=== PATIENT | female | born 1980 | race Caucasian/White ===

== ENCOUNTER 2017-03-12 16:30 | Outpatient (RCR) | payer OTHER, SELFPAY ==
--- NOTE | 2017-02-06 16:48 | HP.PTEVAL ---
Patient's Visit Information KODY WITT is a 36 year old F referred to Physical Therapy by Adriana Rodriguez NP.MCIESA with a diagnosis of Sciatica. Date of Evaluation: 02/06/17 Physical Therapist: Maria M Kearney - Visit Plan Frequency: 2x /Week Duration: 4 Weeks Plan: Patient to see JEAN PAUL next visit - Subjective Subjective: Patient has had pain for over 10 years- no specific injury- remembers her back pain started about 6 or 7 years old- Last MRI was 2012- showed bulging discs and herniations in the lumbar spine. Has delt with it a long time has modified which is normal- but now its painful daily and its getting old. The bouts are lasting longer and more painful. Pain is located the low back and has muscle spasms up to mid thoracic. Her neck is always spasming and has had VILLAGRAN for as long as she can remember. Eases: Ibuprofen, stretching (bending backwards) working out ([employer]). Belongs to [employer]- modifies- was going 3-5x a week but has not been going as much due to pain in the back. Pain radiates down the left but in the last 2 weeks its been in the buttock on both sides. Numb/burning on both sides. Burning pain on the left stops about the knee. Happens 3-4x a week and comes and goes. Describes back pain as dull/achy and when she moves its sharp. Twisting and turning is okay if she is careful. Prefers to bend backwards- she has to put her hand on something or squat to go forwards. Worst: 10. Last week could not get out of bed- could not put pressure through her legs- did exercises and then was able to more. Best: 04/14. MD sent her to therapy and possibly needs an MRI- was told she might need surgery but she is not keen on that. Has not had a consult with a spinal surgeon. Sleep: needs a new mattress- its not good- she cant sleep on her back or stomach. Sleeps on her side then her arm goes numb she she tosses and turns a lot- does have numbness that in the palm when she wakes up 30 min to 4 hours before it goes away. Denies any trauma on her back. PMHx: goiter meds: Ibuprofen and Wellbutrin. 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 - Objective Posture: FH, RS, Increased kyphosis- severe guarding- very little trunk rotation. Gait: no deviation. ROM: WNL in all planes but has pain with forward flexion, extn and SB to the right. LE: WFL. Strength: Core: poor, Hip: IR/ER: 3+/5, flexion/abd/extn: 4+/5 Knee: 5/5 Ankle: 5/5. Sensation/Reflexes: WNL. Dural Signs: positive- bilateral. Palpation:tender paraspinals lumbar and thoracic, Gluts and ITBand bilaterally. Special Test: SL extn on left leg- reproduced s/s immediatly. Flex: HS: mod, Gastoc: mod - Goals Goal 1:: Patient will be I with HEP and progression Goal Time Frame: 4-6 Weeks Goal 2:: Patient will maintain proper posture t/o tx session to demo increased core s/s Goal Time Frame: 4-6 Weeks - Rehabilitation Potential Physical Therapy Diagnosis: Patient presents with hypombility-she has decreased ROM, strength and muscular endurance leading to poor posture and increased pain with ADL's. Rehabilitation Potential: Fair - Anticipated Interventions Patient/Client Instruction: Educate patient on: Benefits of Fitness Program For the Purpose of:: To improve ability to perform ADL's Therapeutic Exercise to Include: Strength training, Endurance training, Agility training, Body mechanics, Postural training, Flexibilty training, In an aquatic setting, Passive ROM, Active ROM, Dynamic Lumbar Stabilization, Keila Exercises, Scapular Strength/Stabilization For the Purpose of:: To improve muscle performance and motor function TENS: Yes Cryotherapy (ice pack, ice massage): Yes Thermo therapy (hot pack): Yes Ultrasound (thermal/non thermal): Yes For the Purpose of:: To decrease pain Thank you for the opportunity to evaluate your patient. For Medicare and Medicare HMO plans, please review the plan of care and approve it. It will need to be FAXED BACK to us at [phone] for Medicare purposes. Please let me know if there are questions or concerns regarding this plan of care. Physician Signature: Date:
--- NOTE | 2017-03-12 17:23 | HP.PTDCSUM ---
HP - PT D/C Summary It has been my pleasure to treat KODY WITT under orders from Adriana Rodriguez NP.MCIESA for the diagnosis of Sciatica for a total of 8 visit(s). Discharge Date: 03/12/17 Please see the following information for a summary of their discharge status. - Subjective Subjective: PATIENT REPORTS SHE HAD A REALLY ROUGH NIGHT AND APPARENTLY TOSSED AND TURNED FOR 3-4 HOURS DUE TO LLE NUMBNESS ALL THE WAY DOWN HER LEG TO HER FOOT. SHE REPORTS THIS WAS FOR NO APPARENT REASON. FOLLOW UP SCHEDULED WITH Rocco MUTSAFA. HOPING TO GET MRI AND SPECIALIST CONSULT AT THIS POINT. PATIENT REPORTS MAINLY ONLY TEMPORARY RELIEF WITH THIS EPISODE OF CARE WITH PT. - Pain LOW BACK Pain Intensity (Out of 10): 3 - Objective Objective/Function: UPON EXAM, PATIENT IS NOT PROGRESSING OR WORSENING. RECOMMEND PHYSICIAN FOLLOW UP. I STILL THINK PATIENT IS A GOOD AQUATIC THERAPY CANDIDATE IF NOT SURGICAL OR INJECTION CANDIDATE BUT IT REALLY DOES NOT FIT INTO HER SCHEDULE. - Goals Goal 1:: Patient will be I with HEP and progression Goal Progress: Not Progressing Goal 2:: Patient will maintain proper posture t/o tx session to demo increased core s/s Goal Progress: Not Progressing - Plan Plan: D/C DUE TO LACK OF PROGRESS. RECOMMEND PHYSICIAN FOLLOW UP AND PATIENT IS AGREEABLE. - D/C Information If there are questions or concerns regarding this patient's physical therapy, please feel free to call me at [phone]. Thank you for the referral of this patient. Sincerely, Tiana Witt
== END 2017-03-12 19:00 | disposition home or self-care (01) ==
LOC: PT 16:30
PROVIDERS: Family Provider Nurse Practitioner; PCP Nurse Practitioner; Visit Provider Nurse Practitioner
DX: M54.32 Sciatica, left side (principal); M54.9 Dorsalgia, unspecified
CPT/HCPCS: 97014; 97035; 97140; 97162; 97530; G0283

== ENCOUNTER → 2017-04-03 16:59 | Outpatient (CLI) | payer OTHER, SELFPAY ==
--- NOTE | 2017-04-03 17:30 | MRI_ITS ---
STUDY: MRI CERVICAL SPINE WITHOUT CONTRAST REASON FOR EXAM: Female, 36 years old. Neck and bilateral shoulder pain. TECHNIQUE: Standardized fat and water weighted pulse sequences were obtained in the sagittal and axial planes. COMPARISON: Prior comparison studies are not available for review at this time. FINDINGS: Normal foramen magnum and brainstem-cervical cord junction. Normal craniovertebral junction. Normal anterior atlantoaxial articulation. Normal odontoid process. There is straightening of the normal cervical lordosis. Normal vertebral bodies and posterior osseous elements. C2-3: Normal endplates. Normal disc height, signal and morphology. Normal central canal. There is mild left-sided neural foraminal narrowing. At the right neural foramen is patent. There is no evidence for nerve impingement. There is moderate degenerative arthropathy of the facet joints. C3-4: Normal endplates. Normal disc height, signal and morphology. Normal central canal and intervertebral neural foramina. There is degenerative arthropathy of the facet joints. C4-5: There is a broad central disc protrusion. There is a moderate bilateral neural foraminal narrowing with uncovertebral and facet joint arthropathy. There is no evidence for nerve impingement. There is mild acquired canal stenosis with possible impingement of the right side of spinal cord at this level. C5-6: There is a mild disc bulge and osteophyte complex. The neural foramina are patent without evidence for nerve impingement. There is no significant central acquired canal stenosis. C6-7: Normal endplates. Normal disc height, signal and morphology. Normal central canal and intervertebral neural foramina. C7-T1: Normal endplates. Normal disc height, signal and morphology. Normal central canal and intervertebral neural foramina. Normal cervical cord. There is no demonstrated cervical cord syrinx cavity. Normal visualized soft tissue structures. MRI/Spine Cervical (Routine) IMPRESSION: Multilevel degenerative disc disease and degenerative arthropathy of the cervical spine with the most severe changes at C5-6 with potential cord impingement. Electronically Signed: Jane Lisa MD at 19:42 EST , Service support ,
--- NOTE | 2017-04-03 18:15 | MRI_ITS ---
STUDY: MRI LUMBAR SPINE WITHOUT CONTRAST REASON FOR EXAM: Female, 36 years old. Chronic low back pain and radiculopathy. TECHNIQUE: Standardized fat and water weighted pulse sequences were obtained in the sagittal and axial planes. COMPARISON: MRI of the lumbar spine dated April 10, 2012. FINDINGS: T12-L1: Normal endplates. Normal disc height, signal and morphology. Normal bilateral facet joints. Normal central canal and bilateral lateral recesses. Normal bilateral intervertebral neural foramina. Normal lumbar lordosis. There is no substantial scoliosis. Normal conus medullaris that terminates at the L1 level. L1-2: Normal endplates. Normal disc height, signal and morphology. Normal bilateral facet joints. Normal central canal and bilateral lateral recesses. Normal bilateral intervertebral neural foramina. L2-3: Normal endplates. Normal disc height, signal and morphology. Normal bilateral facet joints. Normal central canal and bilateral lateral recesses. Normal bilateral intervertebral neural foramina. L3-4: Normal endplates. Normal disc height, signal and morphology. Normal bilateral facet joints. Normal central canal and bilateral lateral recesses. Normal bilateral intervertebral neural foramina. L4-5: There is a mild disc bulge and osteophyte complex. There is mild degenerative arthropathy of facet joints. The neural foramina are bilaterally narrowed without evidence for nerve impingement. There is no significant central acquired canal stenosis. L5-S1: There is narrowing of this disc with vacuum disc phenomenon. There may be a small focal central disc protrusion. There is moderate degenerative arthropathy of facet joints. The neural foramina are narrowed without evidence for nerve impingement. Normal visualized sacral ala. Normal visualized paraspinous soft tissue structures. MRI/Spine Lumbar (Routine) IMPRESSION: Mild multilevel degenerative disc disease and degenerative arthropathy of the lower lumbar spine with neural foraminal narrowing, as described. Electronically Signed: Jane Lisa MD at 19:54 EST , Service support ,
== END ==
PROVIDERS: Family Provider Nurse Practitioner; PCP Nurse Practitioner; Visit Provider Nurse Practitioner
DX: M54.2 Cervicalgia (principal); M54.9 Dorsalgia, unspecified
CPT/HCPCS: 72141; 72148

== ENCOUNTER 2017-08-19 18:59 | Emergency (ER) | payer OTHER, SELFPAY ==
[2017-08-19 19:00] VITALS: BP 147/77; PULSE 88; RESP 16; TEMP 37.1; O2SAT 96; BMI 32.3
--- NOTE | 2017-08-19 19:20 | RAD_ITS ---
STUDY: X-RAY - RIGHT ANKLE REASON FOR EXAM: Female, 37 years old. Fall with swelling and bruising. Pain. TECHNIQUE: 3 view(s) of the ankle. COMPARISON: None. FINDINGS: Normal visualized distal tibia and fibula. Normal medial and lateral malleoli. Normal tibiotalar articulation and ankle mortise. Normal visualized talus and calcaneus. The visualized subtalar, talonavicular, calcaneocuboid and tarsal articulations are normal. The soft tissue structures are unremarkable. RAD/Ankle min 3 Views IMPRESSION: No significant abnormality. Electronically Signed: Kristopher Wallace MD at 19:30 EDT , Service support ,
--- NOTE | 2017-08-19 19:45 | ED.DCSUM_ITS ---
- ER Visit Summary Date of Service: 08/19/17 Chief Complaint: Right ankle pain History of Present Illness: The patient is a 37 F who presents after a mechanical fall. She slipped on mud and injured her right ankle. She states she has been unable to bear weight on it due to pain. She was initially nauseated which she attributes to pain but denies any other injuries. No chest pain abdominal pain back pain her head injury loss of consciousness amnesia or injury to any other extremity. Physical Examination: Afebrile vitals are unremarkable Patient has soft tissue swelling of the right ankle as well as diffuse tenderness which is greatest along the lateral aspect she does not have focal bony tenderness she has brisk capillary refill with normal sensation to light touch and an easily palpable 2+ dorsalis pedis pulse she has no tenderness at the knee proximal fibula hip or any of the other extremities Heart regular rate and rhythm Lungs clear GCS 15 Test Results: Right ankle x-ray is normal, no significant abnormality Emergency Department Course and Treatment: Patient was advised on supportive care including rest ice and elevation. She was given an Aircast and crutches to use as needed. She was given a prescription for naproxen. She understands return for new or worsening symptoms was discharged home. Treatment Plan: [] Disposition: Discharge Impression: Acute right ankle sprain This note was generated with [employer] dictation software. It may contain incorrect words, spelling, and punctuation that were not noted in review of the chart prior to signing ED Disposition - Plan for ED Patient: Chief Complaint: Lower Extremity Injury Referrals: Adriana Rodriguez [Primary Care Provider] -
--- NOTE | 2017-08-19 19:45 | ED.DEP ---
ED Disposition - Plan for ED Patient: Chief Complaint: Lower Extremity Injury Instructions: ED Sprain Ankle W X Ray Prescriptions: Naproxen [Naprosyn] 500 mg PO BID #20 tab Referrals: Adriana Rodriguez [Primary Care Provider] -
== END 2017-08-19 19:59 | disposition home or self-care (01) ==
LOC: ED 19:48
PROVIDERS: Emergency Provider Emergency Medicine; Family Provider Nurse Practitioner; PCP Nurse Practitioner
DX: S93.401A Sprain of unspecified ligament of right ankle, initial encounter (principal); W01.0XXA Fall on same level from slipping, tripping and stumbling without subsequent striking against object, initial encounter; Y93.89 Activity, other specified; Y92.89 Other specified places as the place of occurrence of the external cause; Y99.8 Other external cause status
CPT/HCPCS: 73610; 99284

== ENCOUNTER → 2018-11-22 | Outpatient (CLI) | payer OTHER, SELFPAY ==
--- NOTE | 2018-11-22 10:54 | US_ITS ---
STUDY: ABDOMINAL ULTRASOUND - RIGHT UPPER QUADRANT REASON FOR VISIT: Female, 38 years old elevated liver function tests. TECHNIQUE: Ultrasound evaluation of the right upper quadrant was performed with real-time and static martinez-scale imaging. TECHNICAL QUALITY: Adequate. COMPARISON: None. FINDINGS: Liver: The liver measures 15.3 cm. There is increased echogenicity consistent with fatty infiltration. The bile ducts are within normal limits. There is hepatic color flow. The direction of portal flow is hepatopetal. 1.2 cm round hyperechoic mass within the right lobe of the liver likely consistent with a hemangioma. Gallbladder: Normal distended gallbladder. The gallbladder wall measures 2 mm. There is a negative sonographic Young's sign. There is no pericholecystic fluid. There are no gallstones. Common Bile Duct (C.B.D.): The common bile duct measures 2 mm. Pancreas: Normal size of the head, body and tail of the pancreas. There is normal echogenicity of the pancreas. There is no demonstrated pancreatic mass or cyst. Right Kidney: Normal size of the right kidney. The right kidney measures 11.0 cm. Normal renal cortex. The right cortex measures 1.5 cm. There is no demonstrated renal mass or cyst. There is no right hydronephrosis. US/Liver IMPRESSION: Fatty infiltration of the liver. 1.2 cm probable hemangioma in the right lobe the liver appear Electronically Signed: Bora Joy MD at 12:06 EDT Tel , Service support ,
--- NOTE | 2018-11-22 10:54 | BI_ITS ---
MAMMOGRAPHY - BILATERAL SCREENING REASON FOR EXAM: Female, 38 years old. Routine annual screening examination. PERTINENT HISTORY: Grandmother with breast cancer. Aunts with breast cancer. TECHNIQUE: Digital bilateral breast davis (3D mammographic acquisition) in the CC and MLO projections. 2-D mediolateral oblique (MLO) and craniocaudad (CC) views of both breasts were obtained. CAD: Full Field Digital Mammography with Computer Added Detection was performed. COMPARISON: No comparison mammograms available at this time. If any prior films become available, an addendum to this report can be generated. FINDINGS: Breast Composition: The breasts are heterogeneously dense, which may obscure small masses. There are no dominant masses or suspicious calcifications. Benign-appearing bilateral axillary lymph nodes. No other significant abnormalities are identified. BI/SCREEN MAMM (CAD) W/DAVIS BILAT IMPRESSION: Negative screening mammogram. Yearly followup mammogram recommended. (A) ASSESSMENT CATEGORY: BIRADS Category 2: Benign. A letter regarding these results will be sent to the patient by the facility within 30 days. Approximately 10% of breast cancers are not detected by mammography. A normal mammogram should not delay biopsy of a clinically suspicious abnormality. [id number] Electronically Signed: Yunior Quinn, at 13:44 EDT , Service support ,
== END | disposition home or self-care (01) ==
LOC: OPUS 10:52
PROVIDERS: Family Provider Nurse Practitioner; PCP Nurse Practitioner; Referring Provider Nurse Practitioner; Visit Provider Nurse Practitioner
DX: R74.8 Abnormal levels of other serum enzymes (principal); Z12.31 Encounter for screening mammogram for malignant neoplasm of breast
CPT/HCPCS: 76705; 77063; 77067

== ENCOUNTER 2019-03-06 18:19 | Inpatient (IN) | payer OTHER, SELFPAY ==
[2019-03-06] VITALS (8 sets, daily range): BP systolic 116–154; BP diastolic 81–107; PULSE 70–103; RESP 12–20; TEMP 36.1–36.7; O2SAT 96–100; BMI 32.3; BMI 34.7
--- NOTE | 2019-03-06 19:00 | RAD_ITS ---
STUDY: X-RAY CHEST REASON FOR EXAM: Female, 38 years old. Chest pain TECHNIQUE: Frontal view of the chest COMPARISON: X-Ray Chest January 11, 2015 FINDINGS: Left base atelectasis and/or small infiltrate is present. The lungs are otherwise clear. There are no pleural effusions. There is no pneumothorax. The heart is normal in size. The visualized osseous structures are within normal limits. RAD/Chest 1 View (Portable) IMPRESSION: Left base atelectasis and/or small infiltrate. Otherwise, clear lungs. Electronically Signed: Efren Smith, at 19:31 EST Tel , Service support ,
--- NOTE | 2019-03-06 19:01 | EKG12_ITS ---
Test Reason : CP Blood Pressure : / mmHG Vent. Rate : 074 BPM Atrial Rate : 074 BPM P-R Int : 160 ms QRS Dur : 084 ms QT Int : 372 ms P-R-T Axes : 016 033 015 degrees QTc Int : 412 ms Normal sinus rhythm Normal ECG Confirmed by JUHI MENDEZ, JAYDEN ([id number]), newspaper editor managing SHELDON FOX ([id number]) on 03/11/2019 8:04:10 AM Referred By: ED PHYSICIAN Confirmed By:JAYDEN REYNAGA MD
[2019-03-06] MEDS: Aspirin 81 MG TAB.CHEW 324 MG PO (19:05)
[2019-03-06 19:16] LABS: Absolute Lymphocyte Count 1.82 X10^3/uL (0.83-4.51); Absolute Neutrophil Count 5.5 X10^3/uL (2.0-7.7); Basophil# 0.02 X10^3/uL; Basophil% 0.2 % (0-1); Eosinophil# 0.14 X10^3/uL; Eosinophils% 1.7 % (0-5); Hematocrit 42.5 % (37-47); Hemoglobin 14.1 g/dL (12.0-15.0); Lymphocyte # 1.82 X10^3/ul (4.0); Lymphocyte % 22.1 % (19-41); Mean Corp Hgb Conc 33.2 g/dL (32-36); Mean Corpuscular Hgb 30.1 pg (27.0-32.0); Mean Corpuscular Volume 90.6 fL (81-99); Monocyte# 0.78 X10^3/uL; Monocyte% 9.5 % (0-10); NRBC Flagged by Analyzer 0 % (0-5); Neutrophil # 5.45 X10^3/uL (2.7-7.7); Neutrophil % 66.1 % (47-70); Platelet Count 241 K/mm3 (150-450); RBC Distribution Width CV 12.5 % (11.6-14.6); RBC Distribution Width SD 40.7 fl (35.1-43.9); Red Blood Count 4.69 M/mm3 (4.2-5.4); White Blood Count 8.2 K/mm3 (4.4-11.0)
--- NOTE | 2019-03-06 19:23 | ED.DCSUM_ITS ---
- ER Visit Summary Date of Service: 03/06/19 Chief Complaint: Chest pain History of Present Illness: The patient is a 38 F presenting with chest pain. She states this started at 5 PM last night. Pain has been waxing and waning. She has nausea with no vomiting. She denies shortness of breath. Denies PE/DVT risk factors. She has family history of early heart disease, no other CAD risk factors. Pain has been constant throughout the day today. Denies other complaints. Physical Examination: Vitals are stable. Patient is afebrile. Alert no acute distress. HEENT exam is unremarkable. Neck is supple. Lungs are clear and equal bilaterally. Left chest wall tenderness with no crepitus Heart is regular rate and rhythm. Abdomen is soft nontender nondistended. Extremities are unremarkable. Skin is warm and dry. No focal neurologic deficit. Remainder of exam is unremarkable. Emergency Department Course and Treatment: Patient was given aspirin on arrival. EKG is sinus rhythm rate of 74 with no acute ischemic changes. Chest x-ray shows atelectasis versus infiltrate. She has had no symptoms of cough or fever. CBC, chemistries unremarkable. Troponin is negative. D-dimer 1.27. CTA chest was obtained and shows somewhat limited evaluation secondary to poor opacification of the small distal pulmonary arteries however there are likely bilateral pulmonary emboli within the subsegmental pulmonary arteries of the bilateral lung bases. Heterogeneous attenuation within the bilateral lung bases may be billing customer service representative of an acute infectious or inflammatory process as clinically indicated. Incompletely characterized density adjacent to the pancreas needs further evaluation for better characterization with dedicated contrast enhanced abdominal imaging. Possible right adrenal nodule is also incompletely characterized. Patient was advised of these findings. She was given Eliquis. Discussed with the hospitalist for admission. Disposition: Admission Impression: Bilateral pulmonary embolism This note was generated with [employer] dictation software. It may contain incorrect words, spelling, and punctuation that were not noted in review of the chart prior to signing ED Disposition - Plan for ED Patient: Referrals: Adriana Rodriguez NP-C [Primary Care Provider] -
[2019-03-06 19:29] LABS: Anion Gap 3 (5-15); BUN 13 mg/dL (7-18); BUN/Creat Ratio 12.5 RATIO (10-20); Calcium,Total 9.4 mg/dL (8.5-10.1); Chloride 105 mmol/L (98-107); Creatinine, Serum 1.04 mg/dL (0.55-1.02); EST Glomerular Filtration Rate 62 mL/min (>60); Est Glom Filt Rate - Afr Amer 75 mL/min (>60); Estimated Creatinine Clearance 67.31 ml/min; Glucose 91 mg/dL (74-106); Potassium 3.7 mmol/L (3.5-5.1); Sodium Level 138 mmol/L (136-145)
[2019-03-06 19:55] LABS: D-Dimer Quantitative (DVT/PE) 1.27 FEU/ug/m (0.27-0.49)
--- NOTE | 2019-03-06 20:55 | CT_ITS ---
We are attempting to reach an attending provider to discuss findings. An addendum with communication details will be sent when the communication is complete. STUDY: CTA CHEST REASON FOR EXAM: Female, 38 years old. CP SINCE LAST NIGHT/ELEV DDIMER RADIATION DOSAGE (If Supplied By Facility): CTDIvol = ( 13.68 ) mGy, DLP = ( 443.15 ) mGycm TECHNIQUE: The examination was performed with the intravenous administration of Isovue 370 100ml. Post-processing of the angiographic images was performed, with multiplanar reformation and 3D reconstruction. Individualized dose optimization techniques were used for this CT. COMPARISON: None. FINDINGS: Normal enhancement of the main pulmonary artery and right and left pulmonary arteries. There is limited enhancement of the bilateral peripheral pulmonary arteries. There are likely several small pulmonary emboli within the distal subsegmental branches of the bilateral lower lobe pulmonary arteries for example series 2 image 75. Normal thoracic aorta and visualized great vessels. There is no demonstrated aortic dissection. Normal heart and pericardium. Normal mediastinum. Normal hilar regions. Normal visualized trachea and bronchi. The lungs are well expanded. Heterogeneous groundglass opacities are noted within the bilateral lung bases. Normal pleura. Normal chest wall structures. Normal osseous structures. Incompletely characterized possible right adrenal nodule. Question a solid pancreatic tail mass versus artifact. CT/CTA Chest W/WO Contrast IMPRESSION: Somewhat limited evaluation secondary to poor opacification of the small distal pulmonary arteries however there are likely bilateral pulmonary emboli within the subsegmental pulmonary arteries of the bilateral lung bases. Heterogeneous attenuation within the bilateral lung bases may be automobile sales representative of an acute infectious or inflammatory process as clinically indicated. Incompletely characterized density adjacent to the pancreas needs further evaluation for better characterization with dedicated contrast enhanced abdominal imaging. Possible right adrenal nodule is also incompletely characterized. Findings discussed with Physician: Senait Travis by Dr. Camargo on 03/06/2019 9:45 PM via telephone. Electronically Signed: Philip Camargo, at 21:49 EST Tel , Service support ,
[2019-03-06] MEDS: APIXABAN 5 MG TABLET 10 MG PO (22:15)
[2019-03-06] MEDS: Morphine 2 MG/ML Syringe IV (22:15)
--- NOTE | 2019-03-06 22:20 | HP.PCM_ITS ---
Problem List (1) Bilateral pulmonary embolism Status: Acute (2) GERD (gastroesophageal reflux disease) Status: Chronic History of Present Illness Date of Admission: 03/06/19 Chief Complaint: Chest pain. The patient is a 38 year old F patient with past medical history as mentioned above presented to the emergency room because of chest pain. Her symptoms started yesterday evening around 5 PM with pain underneath her left scapula, sharp pain, 7 out of 10 in severity, goes to the front of her chest on the left side, extending to the left side of her neck, aggravated by movement and taking a deep breath, no relieving factor and this pain has been waxing and waning. She denied shortness of breath, diaphoresis, nausea or vomiting. He denied leg pain or edema. Denied pain, nausea or vomiting. In the emergency department, her vital signs were stable. Her routine blood work was unremarkable. EKG revealed normal sinus rhythm without evidence of acute ischemic changes or cardiac arrhythmias. Troponin was negative x2. D-dimer was elevated for which CTA chest done and revealed likely bilateral pulmonary emboli within the subsegmental pulmonary arteries of bilateral lung bases as well as incompletely characterized density adjacent to the pancreas. Chest x-ray showed no acute findings. She is being admitted for acute bilateral pulmonary emboli and incidental finding on of the pancreas. 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 Paternal History Items: Heart Disease Review of Systems Constitutional: Denies: Anorexia, Chills, Fever, Weakness Eyes: Denies: Blurred vision, Double vision, Drainage, Redness HEENT: Denies: Difficulty Hearing, Ear Pain, Eye Pain, Nasal Congestion, Sore Throat Cardiovascular: Reports: Chest Pain, Light Headedness. Denies: Chest Pressure, Chest Tightness, Edema, Heaviness, Orthopnea, Palpitations, Syncope Respiratory: Denies: Cough, Pleuritic Pain, Shortness of Breath, Sputum production, Wheezing Gastrointestinal: Denies: Abdominal Pain, Constipation, Diarrhea, Nausea, Vomiting Genitourinary: Denies: Dysuria, Frequency, Hematuria Musculoskeletal: Reports: Back Pain. Denies: Arm Pain, Foot Pain Skin: Denies: Dryness, Rash Neurological: Denies: Balance problems, Double vision, Headaches, Incoordination, Numbness Psychiatric: Denies: Anxiety, Depression Endocrine: Denies: Change in Body Habitus, Polydipsia, Polyuria VTE Information - Inpt Only VTE Present on Admission: No VTE Mechan Device Prophylaxis: None VTE Pharm Prophylaxis ordered?: No Patient Problems: Active and Suspected Problems Bilateral pulmonary embolism (Acute) - Physical Exam Vitals/I&O's: Vital Signs Temp Pulse Resp BP Pulse Ox 97 F L 83 18 143/90 H 100 03/06/19 18:19 03/06/19 22:00 03/06/19 22:00 03/06/19 22:00 03/06/19 22:00 Oxygen Delivery Method Room Air Weight: 200 lb Body Mass Index (BMI) 32.3 General: Alert, Oriented x3, Cooperative, No apparent distress HEENT: Atraumatic, PERRLA, EOMI, Normocephalic Oral: Moist Mucosa, No Gingival or Mucosal Lesions/ Ulcerations Neck: Supple, No JVD, Negative Carotid Bruits, Trachea Midline, Thyroid Normal Size and Texture Lungs: Clear to auscultation, Normal air movement, No rhonchi, No wheeze, No rales Cardiovascular: Regular rate, Regular Rhythm, Normal S1, Normal S2, No murmurs, PMI Normal Abdomen: Bowel Sounds Present, Soft, Non Tender, Non-Distended, No Hepato- splenomegaly Extremities: No clubbing, No cyanosis, No edema Skin: No rashes, No breakdown Lymphatic: No Cervical, Supraclavicular, or Inguinal Adenopathy Neurological: Cranial nerves II-XII grossly intact, Motor Exam 5/5 strength throughout Psych/Mental Status: Normal Affect, Appropriate, Alert and oriented to time, place, person, mood and affect Laboratory Results 03/06/19 18:30: WBC 8.2, RBC 4.69, Hgb 14.1, Hct 42.5, MCV 90.6, MCH 30.1, MCHC 33.2, RDW Std Deviation 40.7, RDW Coeff of Amanda 12.5, Plt Count 241, MPV 10.0, Immature Gran % (Auto) 0.400, Neut % (Auto) 66.1, Lymph % (Auto) 22.1, [place] % (Auto) 9.5, Eos % (Auto) 1.7, Baso % (Auto) 0.2, Absolute Neuts (auto) 5.5, Absolute Lymphs (auto) 1.82, Nucleated RBC % 0 03/06/19 18:30: Sodium 138, Potassium 3.7, Chloride 105, Carbon Dioxide 30.0, Anion Gap 3 L, BUN 13, Creatinine 1.04 H, Estim Creat Clear Calc 67.31, Est GFR (MDRD) Af Amer 75, Est GFR (MDRD) Non-Af 62, BUN/Creatinine Ratio 12.5, Glucose 91, Calcium 9.4, Troponin I < 0.015 03/06/19 19:30: D-Dimer Quant (PE/DVT) 1.27 H* 03/06/19 21:41: Troponin I < 0.015 Clinical Impression(s) from Imaging Studies Chest X-Ray 03/06/19 19:00 IMPRESSION: Left base atelectasis and/or small infiltrate. Otherwise, clear lungs. Electronically Signed: Efren Smith, at 19:31 EST Tel , Service support , Chest CTA 03/06/19 20:55 IMPRESSION: Somewhat limited evaluation secondary to poor opacification of the small distal pulmonary arteries however there are likely bilateral pulmonary emboli within the subsegmental pulmonary arteries of the bilateral lung bases. Heterogeneous attenuation within the bilateral lung bases may be sales utility representative of an acute infectious or inflammatory process as clinically indicated. Incompletely characterized density adjacent to the pancreas needs further evaluation for better characterization with dedicated contrast enhanced abdominal imaging. Possible right adrenal nodule is also incompletely characterized. Findings discussed with Physician: Senait Travis by Dr. Camargo on 03/06/2019 9:45 PM via telephone. Electronically Signed: Philip Camargo, at 21:49 EST Tel , Service support , Assessment/Plan All Active Problems Bilateral pulmonary embolism (Acute) This is a 39 years old female patient presented to the emergency room because of chest pain, found to have elevated d-dimer and found to have bilateral pulmonary emboli on CTA chest. #1 acute bilateral subsegmental pulmonary emboli: CTA chest reviewed. This is unprovoked with, no personal or family history of clotting disorders, no recent surgery and no history of cancer. Patient's vital signs are stable. EKG was unremarkable. Troponin was negative. Plan: Admit to PCU, cardiac monitoring, hypercoagulable work-up with protein C profile, protein S, Antithrombin III, factor V Leiden, start Eliquis 10 mg twice daily, will request reread of the CTA chest by radiology in our hospital tomorrow morning, IV fluids, IV morphine PRN, OxyIR PRN for pain, repeat CBC and BMP tomorrow morning. #2 incidental pancreatic lesion/possible right adrenal nodule: Those are an incidental finding on CTA chest. Patient denied any abdominal pain. Plan: LFT, lipase, CT scan abdomen and pelvis with contrast tomorrow afternoon as patient received IV contrast tonight. #3 GERD: Continue PPI. #4 DVT prophylaxis: She will be on Eliquis twice daily. This note was generated with [employer] dictation software. It may contain incorrect words, spelling, and punctuation that were not noted in checking the note before signing. Code Visit Inpatient E&M: 16472 Init Hosp L3
[2019-03-06 23:21] LABS: AST(SGOT) 11 U/L (15-37); Alanine Aminotransfer ALT/SGPT 33 U/L (13-56); Albumin, Serum 3.9 g/dL (3.2-5.0); Alkaline Phosphatase 62 U/L (45-117); Bilirubin, Direct 0.12 mg/dL (0.00-0.30); Lipase 126 U/L (73-393); Protein, Total 7.9 g/dL (6.4-8.2)
[2019-03-07] VITALS (8 sets, daily range): BP systolic 113–126; BP diastolic 58–80; PULSE 67–101; RESP 17–18; TEMP 36.7–36.9; O2SAT 94–97
[2019-03-07] MEDS: 0.9% Normal Saline 1,000 ML 100 ML IV ×2 (00:30→11:45)
[2019-03-07] MEDS: oxyCODONE 5 MG Tablet PO ×3 (00:32→13:07)
[2019-03-07 06:23] LABS: Absolute Lymphocyte Count 2.02 X10^3/uL (0.83-4.51); Absolute Neutrophil Count 3.6 X10^3/uL (2.0-7.7); Basophil# 0.01 X10^3/uL; Basophil% 0.2 % (0-1); Eosinophil# 0.14 X10^3/uL; Eosinophils% 2.2 % (0-5); Hematocrit 40.9 % (37-47); Hemoglobin 13.6 g/dL (12.0-15.0); Lymphocyte # 2.02 X10^3/ul (4.0); Lymphocyte % 31.9 % (19-41); Mean Corp Hgb Conc 33.3 g/dL (32-36); Mean Corpuscular Volume 90.3 fL (81-99); Mean Platelet Vol. 9.6 fl (6.2-12.0); Monocyte# 0.57 X10^3/uL; NRBC Flagged by Analyzer 0 % (0-5); Neutrophil # 3.58 X10^3/uL (2.7-7.7); Neutrophil % 56.5 % (47-70); Platelet Count 226 K/mm3 (150-450); RBC Distribution Width CV 12.3 % (11.6-14.6); RBC Distribution Width SD 40.7 fl (35.1-43.9); Red Blood Count 4.53 M/mm3 (4.2-5.4); White Blood Count 6.3 K/mm3 (4.4-11.0)
[2019-03-07] MEDS: Acetaminophen 325 MG Tablet 650 MG PO ×2 (06:41→15:02)
[2019-03-07 06:46] LABS: Anion Gap 4 (5-15); BUN 12 mg/dL (7-18); BUN/Creat Ratio 16.2 RATIO (10-20); Calcium,Total 9.1 mg/dL (8.5-10.1); Chloride 111 mmol/L (98-107); Creatinine, Serum 0.74 mg/dL (0.55-1.02); EST Glomerular Filtration Rate 92 mL/min (>60); Est Glom Filt Rate - Afr Amer 112 mL/min (>60); Estimated Creatinine Clearance 98.27 ml/min; Glucose 87 mg/dL (74-106); Sodium Level 139 mmol/L (136-145)
--- NOTE | 2019-03-07 09:02 | ECHOD_ITS ---
Reason For Study: Emboli Procedure This was a 2D Doppler, Color Flow transthoracic echocardiogram. The exam was of adequate technical quality. Exam performed portable in patient room. Left Ventricle Normal LV size. Left ventricular systolic function is normal. The estimated ejection fraction is 60 %. No evidence for diastolic dysfunction. No regional wall motion abnormalities noted. Right Ventricle Normal RV size. Normal systolic function. Atria Normal left atrium. Normal right atrium. No doppler evidence for ASD. Mitral Valve There is no mitral annular calcification. Normal mitral valve. Mild (1+) mitral valve insufficiency. Tricuspid Valve Normal tricuspid valve. Trivial tricuspid valve insufficiency. Right ventricular systolic pressure estimated to be 21 mmHg. Aortic Valve Trisinus/trileaflet aortic valve. Normal aortic valve. Pulmonic Valve The pulmonic valve is not well visualized. Trivial pulmonic valve insufficiency. Great Vessels Normal sized aortic root. Pericardium/Pleural No pericardial effusion. MMode/2D Measurements & Calculations LVIDd: 5.3 cm IVSd: 1.1 cm Ao root diam: 3.2 cm LVIDs: 3.7 cm LVPWd: 0.94 cm RVDd: 3.4 cm FS: 30.3 % LAV(MOD-bp): 39.3 ml LVAd ap4: 29.3 cm2 SV(MOD-sp4): 49.3 ml LAV(MOD-bp) Indexed: 19.1 ml/m2 EDV(MOD-sp4): 84.9 ml LAV(MOD-sp2): 32.1 ml EDV(sp4-el): 87.4 ml LAV(MOD-sp4): 39.1 ml LVAs ap4: 17.0 cm2 ESV(MOD-sp4): 35.6 ml ESV(sp4-el): 35.0 ml EF(MOD-sp4): 58.0 % EF(sp4-el): 60.0 % SV(sp4-el): 52.4 ml LA A4 area: 15.8 cm2 LA dimension(2D): 3.9 cm RA A4 area: 12.9 cm2 Doppler Measurements & Calculations MV E max hiro: 51.4 cm/sec Lat Peak E' Hiro: 11.2 cm/sec Med Peak E' Hiro: 7.0 cm/sec MV A max hiro: 47.2 cm/sec E/E' lat: 4.6 E/E' med: 7.4 MV E/A: 1.1 Ao V2 max: 123.8 cm/sec LV V1 max: 101.6 cm/sec PA V2 max: 97.5 cm/sec Ao max P.1 mmHg LV V1 max P.1 mmHg Ao V2 mean: 91.1 cm/sec Ao mean P.5 mmHg Ao V2 VTI: 26.6 cm TR max hiro: 210.1 cm/sec TR max P.7 mmHg Interpretation Summary Left ventricular systolic function is normal. The estimated ejection fraction is 60 %. Mild (1+) mitral valve insufficiency. Trivial tricuspid valve insufficiency. Trivial pulmonic valve insufficiency. Right ventricular systolic pressure estimated to be 21 mmHg. No evidence for diastolic dysfunction. Ordering Physician: Lottie Collins Referring Physician: Adriana Rodriguez Performed By: Zakiya Falcon, REGGIE, RVT
[2019-03-07] MEDS: APIXABAN 5 MG TABLET 10 MG PO (09:42)
[2019-03-07] MEDS: Pantoprazole Sodium 20 MG Tablet PO (09:43)
--- NOTE | 2019-03-07 10:11 | PCM.CONS.PUL ---
Reason for Consult Date of Consultation: 03/07/19 Reason for Consultation: Pulmonary emboli History of Present Illness: The patient is a 38-year-old female, with a history as outlined below, who presented to the emergency department on March 06 with complaints of left-sided pleuritic type chest pain. The patient is a lifelong non-smoker. She has been never been diagnosed previously with any form of venous thromboembolic disease. She denies any recent trauma or travel. The patient does report having had a recent viral infection, following exposure to a sick child. She has no known underlying cardiac disease. On presentation to the emergency department, the patient was noted to be afebrile and hemodynamically stable. She was maintaining appropriate oxygen saturations on room air. CBC with differential was unremarkable. D-dimer was mildly elevated to 1.27. Chemistry profile was notable for a creatinine of 1.04. Troponin was negative. A CTA chest was subsequently obtained. Unfortunately, there was limited enhancement of the peripheral pulmonary arteries. There was a questionable right lower lobe subsegmental PE. There was also incidental note of a possible pancreatic tail mass/abnormality. The patient was subsequently placed on Eliquis and admitted to the progressive care unit for further management. At the current time, the patient continues to report the presence of left-sided pleuritic type chest pain. Nevertheless, she denies the presence of shortness of breath. She is currently scheduled to undergo a CT abdomen/pelvis with contrast. 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 Paternal History Items: Heart Disease Review of Systems Constitutional: Denies: Chills, Fever Eyes: Denies: Blurred vision, Double vision HEENT: Denies: Head Aches, Sinus Congestion, Sinus Drainage Cardiovascular: Reports: Chest Pain. Denies: Chest Tightness Respiratory: Denies: Shortness of Breath Gastrointestinal: Denies: Abdominal Pain, Nausea, Vomiting Genitourinary: Denies: Dysuria Musculoskeletal: Denies: Joint Pain, Joint Tenderness Skin: Denies: Rash, Wounds Neurological: Denies: Numbness, Tingling, Focal weakness Psychiatric: Denies: Anxiety, Depression, Homicidal Ideations, Suicidal Ideations Hematologic/ Lymphatic: Denies: Easy Bruising, Easy Bleeding Patient Problems: Active and Suspected Problems Bilateral pulmonary embolism (Acute) Objective: The patient's most recent lab work, culture data and imaging studies have all been personally reviewed. - Physical Exam Vitals/I&O's: Vital Signs Temp Pulse Resp BP Pulse Ox 98.0 F 82 18 115/73 97 03/07/19 09:36 03/07/19 09:36 03/07/19 09:36 03/07/19 09:36 03/07/19 09:36 Oxygen Delivery Method Room Air Weight: 221 lb 12.56 oz Body Mass Index (BMI) 34.7 Intake and Output for Last 24 Hours 03/05/19 03/06/19 03/07/19 23:59 23:59 23:59 Intake Total 2241.67 / 2241.67 Balance 2241.67 / 2241.67 General: Alert, Cooperative, No apparent distress HEENT: Atraumatic, PERRLA, Normocephalic Oral: No Gingival or Mucosal Lesions/ Ulcerations Neck: Supple, No Nodes, Trachea Midline Lungs: Normal air movement, No rhonchi, No wheeze, No rales Cardiovascular: Regular rate, Regular Rhythm, Normal S1, Normal S2 Abdomen: Bowel Sounds Present, Soft, Non Tender Extremities: No clubbing, No cyanosis, No edema Skin: No breakdown Musculoskeletal: No Tenderness to Palpation of Joints or Extremities, No Muscle Wasting Lymphatic: No Cervical, Supraclavicular, or Inguinal Adenopathy Neurological: Cranial nerves II-XII grossly intact, Neuro grossly intact Psych/Mental Status: Normal Affect, Appropriate Labs (Last 48 Hours) 03/06/19 03/06/19 03/06/19 18:30 18:30 19:30 WBC 8.2 RBC 4.69 Hgb 14.1 Hct 42.5 MCV 90.6 MCH 30.1 MCHC 33.2 RDW Std Deviation 40.7 RDW Coeff of Amanda 12.5 Plt Count 241 MPV 10.0 Immature Gran % (Auto) 0.400 Neut % (Auto) 66.1 Lymph % (Auto) 22.1 [place] % (Auto) 9.5 Eos % (Auto) 1.7 Baso % (Auto) 0.2 Absolute Neuts (auto) 5.5 Absolute Lymphs (auto) 1.82 Nucleated RBC % 0 D-Dimer Quant (PE/DVT) 1.27 H* Protein C Antigen Prot C Funct Activity Functional Protein S Free Protein S Total Protein S Func Antithrombin III Factor V Leiden Mutat Sodium 138 Potassium 3.7 Chloride 105 Carbon Dioxide 30.0 Anion Gap 3 L BUN 13 Creatinine 1.04 H Estim Creat Clear Calc 67.31 Est GFR (MDRD) Af Amer 75 Est GFR (MDRD) Non-Af 62 BUN/Creatinine Ratio 12.5 Glucose 91 Calcium 9.4 Total Bilirubin Direct Bilirubin AST ALT Alkaline Phosphatase Troponin I < 0.015 Total Protein Albumin Globulin Lipase Beta-2-GPI IgG Ab Beta-2-GPI IgA Ab Beta-2-GPI IgM Ab Anti-Cardiolipin IgG Ab Anti-Cardiolipin IgM Ab 03/06/19 03/06/19 03/06/19 21:41 21:41 23:45 WBC RBC Hgb Hct MCV MCH MCHC RDW Std Deviation RDW Coeff of Amanda Plt Count MPV Immature Gran % (Auto) Neut % (Auto) Lymph % (Auto) [place] % (Auto) Eos % (Auto) Baso % (Auto) Absolute Neuts (auto) Absolute Lymphs (auto) Nucleated RBC % D-Dimer Quant (PE/DVT) Protein C Antigen Pending Prot C Funct Activity Pending Functional Protein S Pending Free Protein S Pending Total Protein S Pending Func Antithrombin III Pending Factor V Leiden Mutat Pending Sodium Potassium Chloride Carbon Dioxide Anion Gap BUN Creatinine Estim Creat Clear Calc Est GFR (MDRD) Af Amer Est GFR (MDRD) Non-Af BUN/Creatinine Ratio Glucose Calcium Total Bilirubin 0.30 Direct Bilirubin 0.12 AST 11 L ALT 33 Alkaline Phosphatase 62 Troponin I < 0.015 Total Protein 7.9 Albumin 3.9 Globulin 4.0 Lipase 126 Beta-2-GPI IgG Ab Pending Beta-2-GPI IgA Ab Pending Beta-2-GPI IgM Ab Pending Anti-Cardiolipin IgG Ab Pending Anti-Cardiolipin IgM Ab Pending 01/03/07/19 03/07/19 23:45 06:02 06:02 WBC 6.3 RBC 4.53 Hgb 13.6 Hct 40.9 MCV 90.3 MCH 30.0 MCHC 33.3 RDW Std Deviation 40.7 RDW Coeff of Amanda 12.3 Plt Count 226 MPV 9.6 Immature Gran % (Auto) 0.200 Neut % (Auto) 56.5 Lymph % (Auto) 31.9 [place] % (Auto) 9.0 Eos % (Auto) 2.2 Baso % (Auto) 0.2 Absolute Neuts (auto) 3.6 Absolute Lymphs (auto) 2.02 Nucleated RBC % 0 D-Dimer Quant (PE/DVT) Protein C Antigen Prot C Funct Activity Functional Protein S Free Protein S Total Protein S Func Antithrombin III Factor V Leiden Mutat Sodium 139 Potassium 4.0 Chloride 111 H Carbon Dioxide 24.0 Anion Gap 4 L BUN 12 Creatinine 0.74 Estim Creat Clear Calc 98.27 Est GFR (MDRD) Af Amer 112 Est GFR (MDRD) Non-Af 92 BUN/Creatinine Ratio 16.2 Glucose 87 Calcium 9.1 Total Bilirubin Direct Bilirubin AST ALT Alkaline Phosphatase Troponin I < 0.015 Total Protein Albumin Globulin Lipase Beta-2-GPI IgG Ab Beta-2-GPI IgA Ab Beta-2-GPI IgM Ab Anti-Cardiolipin IgG Ab Anti-Cardiolipin IgM Ab Clinical Impression(s) from Imaging Studies Chest X-Ray 03/06/19 19:00 IMPRESSION: Left base atelectasis and/or small infiltrate. Otherwise, clear lungs. Electronically Signed: Efren Smith, at 19:31 EST Tel , Service support , Chest CTA 03/06/19 20:55 IMPRESSION: Somewhat limited evaluation secondary to poor opacification of the small distal pulmonary arteries however there are likely bilateral pulmonary emboli within the subsegmental pulmonary arteries of the bilateral lung bases. Heterogeneous attenuation within the bilateral lung bases may be dermatology sales representative of an acute infectious or inflammatory process as clinically indicated. Incompletely characterized density adjacent to the pancreas needs further evaluation for better characterization with dedicated contrast enhanced abdominal imaging. Possible right adrenal nodule is also incompletely characterized. Findings discussed with Physician: Senait Travis by Dr. Camargo on 03/06/2019 9:45 PM via telephone. Electronically Signed: Philip Camargo, at 21:49 EST Tel , Service support , ADDENDUM: 03/07/19 0039 IMPRESSION: Somewhat limited evaluation secondary to poor opacification of the small distal pulmonary arteries however there are likely bilateral pulmonary emboli within the subsegmental pulmonary arteries of the bilateral lung bases. Heterogeneous attenuation within the bilateral lung bases may be dermatology sales representative of an acute infectious or inflammatory process as clinically indicated. Incompletely characterized density adjacent to the pancreas needs further evaluation for better characterization with dedicated contrast enhanced abdominal imaging. Possible right adrenal nodule is also incompletely characterized. Findings discussed with Physician: Senait Travis by Dr. Camargo on 03/06/2019 9:45 PM via telephone. N.B. : The above information has been verbally conveyed by Philip Camargo to Senait Travis MD, on 03/07/2019 00:32:17 (ET). Electronically Signed: Philip Camargo, at 21:49 EST Tel , Service support , ADDENDUM: 03/07/19 0425 IMPRESSION: Somewhat limited evaluation secondary to poor opacification of the small distal pulmonary arteries however there are likely bilateral pulmonary emboli within the subsegmental pulmonary arteries of the bilateral lung bases. Heterogeneous attenuation within the bilateral lung bases may be dermatology sales representative of an acute infectious or inflammatory process as clinically indicated. Incompletely characterized density adjacent to the pancreas needs further evaluation for better characterization with dedicated contrast enhanced abdominal imaging. Possible right adrenal nodule is also incompletely characterized. Findings discussed with Physician: Senait Travis by Dr. Camargo on 03/06/2019 9:45 PM via telephone. N.B. : The above information has been verbally conveyed by Philip Camargo to Senait Travis MD, on 03/07/2019 00:32:21 (ET). Electronically Signed: Philip Camargo, at 21:49 EST Tel , Service support , Current Medications Acetaminophen (Tylenol) 650 mg PO Q6H PRN PRN PRN Reason: Pain Score 1-3/Temp > 100.7 F Last Admin: 03/07/19 06:41 Dose: 650 mg Documented by: Apixaban (Eliquis) 10 mg PO BID [facility] Last Admin: 03/07/19 09:42 Dose: 10 mg Documented by: Sodium Chloride () 1,000 mls @ 100 mls/hr IV .Q10H [facility] Stop: 03/07/19 18:33 Last Infusion: 03/07/19 09:55 Dose: 0 mls/hr Documented by: Morphine Sulfate () 1 - 2 mg IV Q4H PRN PRN PRN Reason: Pain Score 6-10/10 Ondansetron HCl (Zofran) 4 mg IV Q8H PRN PRN PRN Reason: NAUSEA/VOMITING Oxycodone HCl (Oxyir) 5 mg PO Q6H PRN PRN PRN Reason: Pain Score 4-5/10 Last Admin: 03/07/19 06:38 Dose: 5 mg Documented by: Pantoprazole Sodium (Protonix) 20 mg PO DAILY [facility] Last Admin: 03/07/19 09:43 Dose: 20 mg Documented by: Senna/Docusate Sodium (Senokot-S, Meagan-Colace) 2 tablet PO BID PRN PRN PRN Reason: Constipation Sodium Chloride () 10 - 40 ml IV UD PRN PRN Reason: SALINE FLUSH Zolpidem Tartrate (Ambien (Generic)) 5 mg PO QHS PRN PRN PRN Reason: INSOMNIA Assessment/Plan All Active Problems Bilateral pulmonary embolism (Acute) RECOMMENDATIONS: 1. Gentle IV fluid hydration overnight. 2. If kidney function is stable, consideration can be given to obtaining a repeat CTA chest tomorrow. 3. For now, continue systemic anticoagulation. 4. Consider prednisone 40 mg daily for pleuritic pain. IMPRESSIONS: 1. Pleuritic type chest pain/questionable subsegmental PE The patient's primary presenting complaint was for that of left-sided pleuritic type chest pain. A CTA chest was obtained which revealed a possible subsegmental PE within the right lower lobe. However, there was limited opacification of the peripheral vasculature. Therefore, it is difficult to tell from the imaging study itself if there is truly underlying clot burden present. The patient is currently on Eliquis. She is scheduled to undergo a CT abdomen/pelvis with contrast today. For now, I would recommend continuing her on the Eliquis with plans to hydrate her overnight. Consideration can be given to obtaining a repeat CT chest tomorrow to definitively clarify the presence of subsegmental PE. The patient's pleuritic type chest pain may also be secondary to an underlying component of pleural inflammation in the setting of a recent possible viral respiratory infection. It would not be unreasonable to treat the patient with prednisone for 5 days to see if this provides any symptom relief. 2. Possible pancreatic abnormality The patient CTA chest made incidental note of an abnormality in the patient's pancreas, raising the concern for possible mass. Therefore, she is going to undergo a dedicated CT abdomen/pelvis today. This note was generated with [employer] dictation software. It may contain incorrect words, spelling, and punctuation that were not noted in checking the note before signing. Code Visit Inpatient E&M: 20324 Init Hosp L3
--- NOTE | 2019-03-07 11:27 | PN_ITS ---
Patient Problems: Active and Suspected Problems Bilateral pulmonary embolism (Acute) Subjective: Patient seen and examined. Denies significant shortness of breath. Reports chest pain with deep breathing. Patient reports ongoing lightheadedness. - Physical Exam Vitals/I&O's: Vital Signs Temp Pulse Resp BP Pulse Ox 98.0 F 101 H 18 115/73 97 03/07/19 09:36 03/07/19 10:50 03/07/19 09:36 03/07/19 09:36 03/07/19 09:36 Oxygen Delivery Method Room Air Weight: 221 lb 12.56 oz Body Mass Index (BMI) 34.7 Intake and Output for Last 24 Hours 03/05/19 03/06/19 03/07/19 23:59 23:59 23:59 Intake Total 2241.67 / 2241.67 Balance 2241.67 / 2241.67 General: Alert, Oriented x3, Cooperative HEENT: Atraumatic, PERRLA, EOMI, Normocephalic Neck: Supple, No JVD, Negative Carotid Bruits Lungs: Clear to auscultation, Normal air movement Cardiovascular: Regular rate, Regular Rhythm, Normal S1, Normal S2, No murmurs Abdomen: Bowel Sounds Present, Soft, Non Tender, Non-Distended Extremities: No clubbing, No cyanosis, No edema, Capillary Refill Less than 3 Seconds Skin: No rashes, No breakdown Musculoskeletal: No Tenderness to Palpation of Joints or Extremities Neurological: Cranial nerves II-XII grossly intact, Neuro grossly intact Psych/Mental Status: Normal Affect, Appropriate Laboratory Results 03/06/19 18:30: WBC 8.2, RBC 4.69, Hgb 14.1, Hct 42.5, MCV 90.6, MCH 30.1, MCHC 33.2, RDW Std Deviation 40.7, RDW Coeff of Amanda 12.5, Plt Count 241, MPV 10.0, Immature Gran % (Auto) 0.400, Neut % (Auto) 66.1, Lymph % (Auto) 22.1, [place] % (Auto) 9.5, Eos % (Auto) 1.7, Baso % (Auto) 0.2, Absolute Neuts (auto) 5.5, Absolute Lymphs (auto) 1.82, Nucleated RBC % 0 03/06/19 18:30: Sodium 138, Potassium 3.7, Chloride 105, Carbon Dioxide 30.0, An ion Gap 3 L, BUN 13, Creatinine 1.04 H, Estim Creat Clear Calc 67.31, Est GFR (MDRD) Af Amer 75, Est GFR (MDRD) Non-Af 62, BUN/Creatinine Ratio 12.5, Glucose 91, Calcium 9.4, Troponin I < 0.015 03/06/19 19:30: D-Dimer Quant (PE/DVT) 1.27 H* 03/06/19 21:41: Troponin I < 0.015 03/06/19 21:41: Total Bilirubin 0.30, Direct Bilirubin 0.12, AST 11 L, ALT 33, Alkaline Phosphatase 62, Total Protein 7.9, Albumin 3.9, Globulin 4.0, Lipase 126 03/06/19 23:45: Protein C Antigen Pending, Prot C Funct Activity Pending, Functional Protein S Pending, Free Protein S Pending, Total Protein S Pending, Func Antithrombin III Pending, Factor V Leiden Mutat Pending, Beta-2-GPI IgG Ab Pending, Beta-2-GPI IgA Ab Pending, Beta-2-GPI IgM Ab Pending, Anti-Cardiolipin IgG Ab Pending, Anti-Cardiolipin IgM Ab Pending 03/06/19 23:45: Troponin I < 0.015 03/07/19 06:02: WBC 6.3, RBC 4.53, Hgb 13.6, Hct 40.9, MCV 90.3, MCH 30.0, MCHC 33.3, RDW Std Deviation 40.7, RDW Coeff of Amanda 12.3, Plt Count 226, MPV 9.6, Immature Gran % (Auto) 0.200, Neut % (Auto) 56.5, Lymph % (Auto) 31.9, [place] % (Auto) 9.0, Eos % (Auto) 2.2, Baso % (Auto) 0.2, Absolute Neuts (auto) 3.6, Absolute Lymphs (auto) 2.02, Nucleated RBC % 0 03/07/19 06:02: Sodium 139, Potassium 4.0, Chloride 111 H, Carbon Dioxide 24.0, Anion Gap 4 L, BUN 12, Creatinine 0.74, Estim Creat Clear Calc 98.27, Est GFR (MDRD) Af Amer 112, Est GFR (MDRD) Non-Af 92, BUN/Creatinine Ratio 16.2, Glucose 87, Calcium 9.1 Current Medications Acetaminophen (Tylenol) 650 mg PO Q6H PRN PRN PRN Reason: Pain Score 1-3/Temp > 100.7 F Last Admin: 03/07/19 06:41 Dose: 650 mg Documented by: Apixaban (Eliquis) 10 mg PO BID [facility] Last Admin: 03/07/19 09:42 Dose: 10 mg Documented by: Sodium Chloride () 1,000 mls @ 100 mls/hr IV .Q10H [facility] Stop: 03/07/19 18:33 Last Infusion: 03/07/19 09:55 Dose: 0 mls/hr Documented by: Morphine Sulfate () 1 - 2 mg IV Q4H PRN PRN PRN Reason: Pain Score 6-10/10 Ondansetron HCl (Zofran) 4 mg IV Q8H PRN PRN PRN Reason: NAUSEA/VOMITING Oxycodone HCl (Oxyir) 5 mg PO Q6H PRN PRN PRN Reason: Pain Score 4-5/10 Last Admin: 03/07/19 06:38 Dose: 5 mg Documented by: Pantoprazole Sodium (Protonix) 20 mg PO DAILY [facility] Last Admin: 03/07/19 09:43 Dose: 20 mg Documented by: Senna/Docusate Sodium (Senokot-S, Meagan-Colace) 2 tablet PO BID PRN PRN PRN Reason: Constipation Sodium Chloride () 10 - 40 ml IV UD PRN PRN Reason: SALINE FLUSH Zolpidem Tartrate (Ambien (Generic)) 5 mg PO QHS PRN PRN PRN Reason: INSOMNIA Medical Necessity - Tobacco Use Smoking Status: Former smoker Assessment/Plan All Active Problems Bilateral pulmonary embolism (Acute) 1. Questionable subsegmental PE-CTA of chest on admission reported to demonstrate subsegmental bilateral lung base PE. Pulmonary medicine consulted. CTA showed limited opacification of the peripheral vasculature. Plan to hydrate overnight and if kidney function remains stable will repeat CTA of chest tomorrow. 2. Incidental pancreatic lesion-CT of abdomen and pelvis pending for further evaluation. 3. GERD- continue PPI. DVT prophylaxis-Eliquis This patient was seen by AMADA Paris under the supervision of Dr. Villareal.
--- NOTE | 2019-03-07 13:00 | CT_ITS ---
STUDY: CT ABDOMEN AND PELVIS WITH CONTRAST REASON FOR EXAM: Female, 38 years old. Incidental abnormal pancreatic density RADIATION DOSAGE (If Supplied By Facility): CTDIvol = ( 15.75 ) mGy, DLP = ( 1131.91 ) mGycm TECHNIQUE: Transaxial images were obtained from the dome of the diaphragm to the symphysis pubis with oral contrast. Oral and amp;amp; IV Gastrografin and amp;amp; 100mL Isovue-300 was administered. Sagittal and coronal images were reconstructed. Individualized dose optimization techniques were used for this CT. COMPARISON: None. FINDINGS: Bibasilar atelectasis and/or infiltrates. The visualized portions of the heart are within normal limits. Scattered hypodense nodules are seen in the liver most likely are presenting small cysts. These are in the right lobe. Findings suggestive of multiple small gallstones. Normal spleen. Normal pancreas. There is a small, circumscribed, smooth, low attenuation right adrenal mass, consistent with an adrenal adenoma. This measures 1.1 cm. Normal left adrenal gland. Normal right kidney. Normal left kidney. Normal visualized stomach. Normal small intestine. Normal colon. The appendix is visualized and appears normal. Normal abdominal aorta. Normal inferior vena cava. There is borderline retroperitoneal lymphadenopathy with enlarged nodes no greater than 10mm in the short axis diameter. Normal urinary bladder. There is a small umbilical hernia containing fat. Disc space narrowing and disc degeneration at the L5-S1 level. CT/Abdomen/Pelvis WITH Contrast IMPRESSION: Bibasilar atelectasis. Scattered small cysts in the right lobe of liver. Multiple gallstones. Findings suggestive of a small right adrenal adenoma. Electronically Signed: Yunior Quinn, at 13:26 EST , Service support ,
[2019-03-07] MEDS: predniSONE 20 MG Tablet 40 MG PO (13:07)
--- NOTE | 2019-03-07 14:02 | CASEMGMT ---
RN CM Note: Attempted to see pt for RN CM assessment. Pt door closed, sleeping x 2. Assessment deferred for now. Pt will likely be on Eliquis on dc. Savings card can be given on dc for 30 day free. Mitchell ESCOBARN RN ACM
--- NOTE | 2019-03-07 14:59 | DCINST_ITS ---
- Discharge Diagnoses Current Active Problems: Current Active and Chronic Problems Bilateral pulmonary embolism (Acute) GERD (gastroesophageal reflux disease) (Chronic) You will use the following diet at home:: No restrictions Discharge Activity: Return to Normal Activity Call your doctor if you observe: Shortness of breath, Dizziness, Fainting spells Allergies/Adverse Reactions: Allergies No Known Allergies Allergy (Verified 08/19/17 19:01) Medications to take at Discharge Omeprazole 20 mg PO DAILY 03/06/19 Apixaban [Eliquis] 10 mg PO BID #72 tab 03/07/19 Oxycodone [Oxyir] 5 mg PO Q6H PRN PRN 5 Days #20 tablet 03/07/19 predniSONE tablet 40 mg PO DAILY@0800 4 Days #8 tab 03/07/19 traZODone [Desyrel] 50 mg PO QHS PRN #30 tab 03/07/19 The following prescriptions were given: traZODone [Desyrel] 50 mg PO QHS PRN #30 tab PRN Reason: Insomnia Transmission Status: Pending to [facility] Apixaban [Eliquis] 10 mg PO BID #72 tab Transmission Status: Pending to [facility] Oxycodone [Oxyir] 5 mg PO Q6H PRN PRN 5 Days #20 tablet PRN Reason: Pain Score 4-5/10 Transmission Status: Received by [facility] predniSONE tablet 40 mg PO DAILY@0800 4 Days #8 tab Transmission Status: Pending to [facility] Primary Care Physician: Adriana Rodriguez NP-C [Primary Care Provider] - Please follow up with your Primary Care Physician in: 1 Week Test Results: Test results from this visit will be discussed in further detail at your follow- up appointment, if applicable. Please Follow Up With: Mare Whitten NP-C When: 1-2 Weeks Proposed Discharge Date: 03/07/19
--- NOTE | 2019-03-07 15:02 | PCM.DC.SUM ---
Discharge Date and Diagnosis Date of Admission: 03/06/19 Date of Discharge: 03/07/19 - Primary Discharge Diagnosis Active and Suspected Problems 1. Acute right-sided subsegmental pulmonary embolism 2. GERD - Secondary Discharge Diagnosis Chronic Problems GERD (gastroesophageal reflux disease) (Chronic) Hospital Course and Treatment Imaging Results: Diagnostic Data Chest X-Ray 03/06/19 19:00 IMPRESSION: Left base atelectasis and/or small infiltrate. Otherwise, clear lungs. Electronically Signed: Efren Smith, at 19:31 EST Tel , Service support , Chest CTA 03/06/19 20:55 IMPRESSION: Somewhat limited evaluation secondary to poor opacification of the small distal pulmonary arteries however there are likely bilateral pulmonary emboli within the subsegmental pulmonary arteries of the bilateral lung bases. Heterogeneous attenuation within the bilateral lung bases may be cash applications representative of an acute infectious or inflammatory process as clinically indicated. Incompletely characterized density adjacent to the pancreas needs further evaluation for better characterization with dedicated contrast enhanced abdominal imaging. Possible right adrenal nodule is also incompletely characterized. Findings discussed with Physician: Senait Travis by Dr. Camargo on 03/06/2019 9:45 PM via telephone. Electronically Signed: Philip Camargo, at 21:49 EST Tel , Service support , ADDENDUM: 03/07/19 0039 IMPRESSION: Somewhat limited evaluation secondary to poor opacification of the small distal pulmonary arteries however there are likely bilateral pulmonary emboli within the subsegmental pulmonary arteries of the bilateral lung bases. Heterogeneous attenuation within the bilateral lung bases may be cash applications representative of an acute infectious or inflammatory process as clinically indicated. Incompletely characterized density adjacent to the pancreas needs further evaluation for better characterization with dedicated contrast enhanced abdominal imaging. Possible right adrenal nodule is also incompletely characterized. Findings discussed with Physician: Senait Travis by Dr. Camargo on 03/06/2019 9:45 PM via telephone. N.B. : The above information has been verbally conveyed by Philip Camargo to Senait Travis MD, on 03/07/2019 00:32:17 (ET). Electronically Signed: Philip Camargo, at 21:49 EST Tel , Service support , ADDENDUM: 03/07/19 0425 IMPRESSION: Somewhat limited evaluation secondary to poor opacification of the small distal pulmonary arteries however there are likely bilateral pulmonary emboli within the subsegmental pulmonary arteries of the bilateral lung bases. Heterogeneous attenuation within the bilateral lung bases may be cash applications representative of an acute infectious or inflammatory process as clinically indicated. Incompletely characterized density adjacent to the pancreas needs further evaluation for better characterization with dedicated contrast enhanced abdominal imaging. Possible right adrenal nodule is also incompletely characterized. Findings discussed with Physician: Senait Travis by Dr. Camargo on 03/06/2019 9:45 PM via telephone. N.B. : The above information has been verbally conveyed by Philip Camargo to Senait Travis MD, on 03/07/2019 00:32:21 (ET). Electronically Signed: Philip Camargo, at 21:49 EST Tel , Service support , Abdomen/Pelvis CT 03/07/19 13:00 IMPRESSION: Bibasilar atelectasis. Scattered small cysts in the right lobe of liver. Multiple gallstones. Findings suggestive of a small right adrenal adenoma. Electronically Signed: Yunior Quinn, at 13:26 EST , Service support , Dr. Scott, pulmonary medicine Operations: None Procedures: 2-D Echocardiogram Summary of Care Provided: The patient is a 38 year old F admitted 03/06/2019 due to chest pain. 1. Acute right-sided subsegmental pulmonary embolism-CTA of chest on admission reported to demonstrate subsegmental bilateral lung base PE. Pulmonary medicine consulted during admission. Hypercoagulable panel pending. Patient will follow-up with hematology as outpatient. Continue Eliquis 10 mg daily for 7 days followed by 5 mg twice daily. Follow-up with pulmonary medicine in 1 to 2 weeks. Patient has no underlying risk factors for PE. Continue PRN pain regimen. Echocardiogram demonstrated an EF of 60%, mild mitral valve insufficiency, trivial tricuspid valve insufficiency, trivial pulmonic valve insufficiency, RVSP estimated to be 21 mmHg. Follow-up with PCP in [address] week[address] 2[address] abdominal [address] findings-CT of abdomen demonstrated scattered small cyst right lobe of liver, multiple gallstones and small right adrenal adenoma. Outpatient follow-up. Patient recently followed with GI for upper and lower endoscopy. Recommend additional follow-up for gallstones and patient report of intermittent abdominal pain. 3. GERD- continue PPI. 4. Pleuritic chest pain-secondary to recent URI. Pain multifactorial as well secondary to #1. Prednisone 40 mg x 5 days. General: Alert, Oriented x3, Cooperative HEENT: Atraumatic, PERRLA, EOMI, Normocephalic Neck: Supple, No JVD, Negative Carotid Bruits Lungs: Clear to auscultation, Normal air movement Cardiovascular: Regular rate, Regular Rhythm, Normal S1, Normal S2, No murmurs Abdomen: Bowel Sounds Present, Soft, Non Tender, Non-Distended Extremities: No clubbing, No cyanosis, No edema, Capillary Refill Less than 3 Seconds Skin: No rashes, No breakdown Musculoskeletal: No Tenderness to Palpation of Joints or Extremities Neurological: Cranial nerves II-XII grossly intact, Neuro grossly intact Psych/Mental Status: Normal Affect, Appropriate Patient seen and examined prior to discharge. Physical assessment as noted above. Patient is stable for discharge with follow up recommendations as noted above. This patient was seen by AMADA Paris under the supervision of Dr. Villareal. - Physical Exam Vitals/I&O's: Vital Signs Temp Pulse Resp BP Pulse Ox 98.5 F 74 18 123/76 H 95 03/07/19 14:55 03/07/19 14:55 03/07/19 14:55 03/07/19 14:55 03/07/19 14:55 Oxygen Delivery Method Room Air Weight: 221 lb 12.56 oz Body Mass Index (BMI) 34.7 Orthostatic Vital Signs Start: 03/07/19 14:18 Freq: q24h Status: Active Protocol: Activity Type Activity Date Activity User E-Sign Co-Sign Detail Recorded Client Recorded Date Recorded By Document 03/07/19 14:55 BS [id number] 03/07/19 14:55 BS 03/07/19 14:55 Orthostatic Vitals Standing -Blood Pressure (90/60-120/80) 126/79 H -Extremity Use Left Arm -Pulse Rate (60-100) 89 Sitting -Blood Pressure (90/60-120/80) 119/80 -Extremity Use Left Arm -Pulse Rate (60-100) 83 Lying -Blood Pressure (90/60-120/80) 123/76 H -Extremity Use Left Arm -Pulse Rate (60-100) 74 Intake and Output for Last 24 Hours 03/05/19 03/06/19 03/07/19 23:59 23:59 23:59 Intake Total 2721.67 / 2721.67 Balance 2721.67 / 2721.67 Laboratory Results 03/06/19 18:30: WBC 8.2, RBC 4.69, Hgb 14.1, Hct 42.5, MCV 90.6, MCH 30.1, MCHC 33.2, RDW Std Deviation 40.7, RDW Coeff of Amanda 12.5, Plt Count 241, MPV 10.0, Immature Gran % (Auto) 0.400, Neut % (Auto) 66.1, Lymph % (Auto) 22.1, [place] % (Auto) 9.5, Eos % (Auto) 1.7, Baso % (Auto) 0.2, Absolute Neuts (auto) 5.5, Absolute Lymphs (auto) 1.82, Nucleated RBC % 0 03/06/19 18:30: Sodium 138, Potassium 3.7, Chloride 105, Carbon Dioxide 30.0, Anion Gap 3 L, BUN 13, Creatinine 1.04 H, Estim Creat Clear Calc 67.31, Est GFR (MDRD) Af Amer 75, Est GFR (MDRD) Non-Af 62, BUN/Creatinine Ratio 12.5, Glucose 91, Calcium 9.4, Troponin I < 0.015 03/06/19 19:30: D-Dimer Quant (PE/DVT) 1.27 H* 03/06/19 21:41: Troponin I < 0.015 03/06/19 21:41: Total Bilirubin 0.30, Direct Bilirubin 0.12, AST 11 L, ALT 33, Alkaline Phosphatase 62, Total Protein 7.9, Albumin 3.9, Globulin 4.0, Lipase 126 03/06/19 23:45: Protein C Antigen Pending, Prot C Funct Activity Pending, Functional Protein S Pending, Free Protein S Pending, Total Protein S Pending, Func Antithrombin III Pending, Factor V Leiden Mutat Pending, Beta-2-GPI IgG Ab Pending, Beta-2-GPI IgA Ab Pending, Beta-2-GPI IgM Ab Pending, Anti-Cardiolipin IgG Ab Pending, Anti-Cardiolipin IgM Ab Pending 03/06/19 23:45: Troponin I < 0.015 03/07/19 06:02: WBC 6.3, RBC 4.53, Hgb 13.6, Hct 40.9, MCV 90.3, MCH 30.0, MCHC 33.3, RDW Std Deviation 40.7, RDW Coeff of Amanda 12.3, Plt Count 226, MPV 9.6, Immature Gran % (Auto) 0.200, Neut % (Auto) 56.5, Lymph % (Auto) 31.9, [place] % (Auto) 9.0, Eos % (Auto) 2.2, Baso % (Auto) 0.2, Absolute Neuts (auto) 3.6, Absolute Lymphs (auto) 2.02, Nucleated RBC % 0 03/07/19 06:02: Sodium 139, Potassium 4.0, Chloride 111 H, Carbon Dioxide 24.0, Anion Gap 4 L, BUN 12, Creatinine 0.74, Estim Creat Clear Calc 98.27, Est GFR (MDRD) Af Amer 112, Est GFR (MDRD) Non-Af 92, BUN/Creatinine Ratio 16.2, Glucose 87, Calcium 9.1 Current Medications Acetaminophen (Tylenol) 650 mg PO Q6H PRN PRN PRN Reason: Pain Score 1-3/Temp > 100.7 F Last Admin: 03/07/19 06:41 Dose: 650 mg Documented by: Apixaban (Eliquis) 10 mg PO BID [facility] Last Admin: 03/07/19 09:42 Dose: 10 mg Documented by: Sodium Chloride () 1,000 mls @ 100 mls/hr IV .Q10H [facility] Stop: 03/07/19 18:33 Last Admin: 03/07/19 11:45 Dose: 100 mls/hr Documented by: Morphine Sulfate () 1 - 2 mg IV Q4H PRN PRN PRN Reason: Pain Score 6-10/10 Ondansetron HCl (Zofran) 4 mg IV Q8H PRN PRN PRN Reason: NAUSEA/VOMITING Oxycodone HCl (Oxyir) 5 mg PO Q6H PRN PRN PRN Reason: Pain Score 4-5/10 Last Admin: 03/07/19 13:07 Dose: 5 mg Documented by: Pantoprazole Sodium (Protonix) 20 mg PO DAILY [facility] Last Admin: 03/07/19 09:43 Dose: 20 mg Documented by: Prednisone () 40 mg PO DAILY@0800 [facility] Last Admin: 03/07/19 13:07 Dose: 40 mg Documented by: Senna/Docusate Sodium (Senokot-S, Meagan-Colace) 2 tablet PO BID PRN PRN PRN Reason: Constipation Sodium Chloride () 10 - 40 ml IV UD PRN PRN Reason: SALINE FLUSH Trazodone HCl (Desyrel) 50 mg PO QHS PRN PRN Reason: INSOMNIA Discharge Diet: No Restrictions Discharge Activity: Return to Normal Activity Call your doctor if you observe: Shortness of breath, Dizziness, Fainting spells Home Medications: Medications to take at Discharge Omeprazole 20 mg PO DAILY 03/06/19 Apixaban [Eliquis] 10 mg PO BID #72 tab 03/07/19 Oxycodone [Oxyir] 5 mg PO Q6H PRN PRN 5 Days #20 tablet 03/07/19 predniSONE tablet 40 mg PO DAILY@0800 4 Days #8 tab 03/07/19 traZODone [Desyrel] 50 mg PO QHS PRN #30 tab 03/07/19 Following Prescrptions Were Given to Patient: traZODone [Desyrel] 50 mg PO QHS PRN #30 tab PRN Reason: Insomnia Transmission Status: Pending to [facility] Apixaban [Eliquis] 10 mg PO BID #72 tab Transmission Status: Pending to [facility] Oxycodone [Oxyir] 5 mg PO Q6H PRN PRN 5 Days #20 tablet PRN Reason: Pain Score 4-5/10 Transmission Status: Received by [facility] predniSONE tablet 40 mg PO DAILY@0800 4 Days #8 tab Transmission Status: Pending to [facility] Primary Care Physician: Ciesa,Adriana, HEEL BREASTER-C [Primary Care Provider] - Please follow up with your Primary Care Physician in: 1 Week Please Follow Up With: Mare Whitten NP-C When: 1-2 Weeks Disposition: Home Minutes spent on discharge:: 35 Patient Condition:: Stable Medical Necessity - Tobacco Use Smoking Status: Former smoker Meaningful Use Info Meaningful Use Diagnoses (Choose all that apply): VTE - VTE Anticoag overlap given w/in hospital stay or rx'd at dc?: Yes Pt receive overlap for 5 days?: Yes
--- NOTE | 2019-03-07 15:12 | CASEMGMT ---
Addendum entered by Colt Paz 03/07/19 15:44: Cost for Eliquis after free trial will be >$570/month until deductible is met. Dr. Villareal aware and is speaking with [facility] to review alternatives and will update pt. Mitchell PADRON Original Note: RN CM Assessment Note Presentation: PE Intro role of CM and purpose of RN CM assessment to patient. Pt plans to return home. Will be on Eliquis on dc. Savings card sent to Retail pharmacy for first 30 days free and lemos check for subsequent copays. PCP: Adriana Rodriguez NP Preferred Pharmacy: [facility] Insurance: [employer] Prescription Benefit: no LNOK: Living Arrangements: Lives independently. No care needs identified. Transportation: Drives DME: none HHC: none Patient DC goals: Home DC PLAN: Home. Mitchell PLASCENCIAM
[2019-03-13 08:08] LABS: Protein C Antigen 90 % (60-150); Protein C, Functional 126 % (73-180)
[2019-03-13 15:38] LABS: Anti-Cardiolipin Ab, IgG, Qn < 9 GPL U/mL (0-14); Anti-Cardiolipin Ab, IgM, Qn < 9 MPL U/mL (0-12); Antithrombin 3 Function 119 % (75-135); Beta-2-Glycoprotein I IgA <9 (0-25); Beta-2-Glycoprotein I IgG <9 (0-20); Beta-2-Glycoprotein I IgM <9 (0-32); Protein S, Free 70 % (57-157); Protein S, Funtional 80 % (63-140); Protein S, Total 87 % (60-150)
== END 2019-03-07 16:49 | disposition home or self-care (01) | DRG 176 ==
LOC: ED 18:50 → PCU 22:21
PROVIDERS: Admitting Provider Hospitalist; Emergency Provider Emergency Medicine; PCP Nurse Practitioner; Visit Provider Family Medicine
DX: I26.93 Single subsegmental thrombotic pulmonary embolism without acute cor pulmonale (principal); J98.11 Atelectasis; K21.9 Gastro-esophageal reflux disease without esophagitis; Z87.891 Personal history of nicotine dependence; E66.9 Obesity, unspecified; Z68.32 Body mass index [BMI] 32.0-32.9, adult; K76.89 Other specified diseases of liver; K80.20 Calculus of gallbladder without cholecystitis without obstruction; D35.01 Benign neoplasm of right adrenal gland; R07.81 Pleurodynia
CPT/HCPCS: 36415; 71045; 71275; 74177; 80048; 80076; 81241; 83690; 84484; 85025; 85300; 85302; 85303; 85305; 85306; 85379; 86146; 86147; 93005; 93306; 99251; 99284; J7030; Q9967; A4216; G0463

== ENCOUNTER → 2019-04-30 12:52 | Outpatient (CLI) | payer OTHER, SELFPAY ==
[2019-03-20 10:32] VITALS: BMI 34.2
--- NOTE | 2019-04-30 12:53 | CT_ITS ---
STUDY: CT CHEST WITHOUT CONTRAST REASON FOR EXAM: Female, 38 years old[address] ABN L[address], GROUND GLASS RADIATION DOSAGE (If Supplied By Facility): CTDIvol = ( 15.40 ) mGy, DLP = ( 561.30 ) mGycm TECHNIQUE: Transaxial imaging was performed without the administration of intravenous contrast material. Multiplanar coronal and sagittal images were reformatted. Individualized dose optimization techniques were used for this CT. COMPARISON: Comparison is made with prior study dated March 06, 2019. FINDINGS: Small bilateral benign-appearing axillary lymph nodes. The lungs are now clear. There is no demonstrated pleural abnormality. There are calcifications of the coronary arteries. There are multiple small lymph nodes within the mediastinum, which are normal in size and morphology most compatible with reactive lymph hyperplasia. Normal hilar regions. Normal unenhanced pulmonary arteries. Normal aorta arch and descending thoracic aorta. There are degenerative changes of the thoracic spine. There is no demonstrated abnormality of the visualized upper abdomen. CT/Chest without Contrast IMPRESSION: No acute abnormality is seen. The lungs are now clear. Electronically Signed: Yunior Quinn, at 14:18 EDT , Service support ,
== END ==
PROVIDERS: PCP Nurse Practitioner; Referring Provider Nurse Practitioner Acute Care; Visit Provider Nurse Practitioner Acute Care
DX: R91.8 Other nonspecific abnormal finding of lung field (principal)
CPT/HCPCS: 71250

== ENCOUNTER → 2019-10-29 | Outpatient (CLI) | payer OTHER, SELFPAY ==
[2019-05-08 11:05] VITALS: BMI 32.1
--- NOTE | 2019-10-29 16:54 | US_ITS ---
STUDY: THYROID ULTRASOUND REASON FOR EXAM: Female, 39 years old. GOITER TECHNIQUE: Ultrasound evaluation of the thyroid was performed with real-time and static martinez-scale imaging. COMPARISON: 05/16/2016 FINDINGS: RIGHT LOBE: The right lobe of the thyroid gland measures 5.5 x 2 x 1.9 cm. There is a homogeneous echotexture. There are no demonstrated solid, cystic or complex lesions. LEFT LOBE: The left lobe of the thyroid gland measures 5.4 x 2 x 1.7 cm. There is a homogeneous echotexture. There is a cystic nodule in the lower pole measuring 5 x 6 x 3 mm with mild perinodular vascularity ISTHMUS: The isthmus measures . The regional lymph nodes are normal. The left cystic nodule is new finding since prior exam US/Thyroid IMPRESSION: Bilateral thyroidal enlargement with tiny cystic nodule in the left lobe measuring 5 x 6 x 3 mm which is new finding since prior study. Would recommend six-month follow-up study or fine-needle aspiration utilizing sonographic guidance if clinically warranted Electronically Signed: Efren Skelton MD at 22:51 EDT , Service support ,
== END | disposition home or self-care (01) ==
LOC: US 16:53
PROVIDERS: PCP Nurse Practitioner; Referring Provider Nurse Practitioner; Visit Provider Nurse Practitioner
DX: E04.9 Nontoxic goiter, unspecified (principal)
CPT/HCPCS: 76536

== ENCOUNTER → 2019-12-04 | Outpatient (CLI) | payer OTHER, SELFPAY ==
[2019-05-08 11:05] VITALS: BMI 32.1
[2019-11-14 13:20] VITALS: BMI 32.1
--- NOTE | 2019-12-04 07:45 | BI_ITS ---
MAMMOGRAPHY - BILATERAL SCREENING REASON FOR EXAM: Female, 39 years old. Routine annual screening examination. PERTINENT HISTORY: Grandmother with breast cancer. Aunt with breast cancer. TECHNIQUE: Digital bilateral breast davis (3D mammographic acquisition) in the CC and MLO projections. 2-D mediolateral oblique (MLO) and craniocaudad (CC) views of both breasts were obtained. CAD: Full Field Digital Mammography with Computer Added Detection was performed. COMPARISON: Comparison is made with prior study 11/22/2018. FINDINGS: Breast Composition: The breasts are heterogeneously dense, which may obscure small masses. There are no dominant masses or suspicious calcifications. No other significant abnormalities are identified. There has been no significant change since the prior study. BI/SCREEN MAMM (CAD) W/DAVIS BILAT IMPRESSION: Stable bilateral screening mammogram. Yearly follow-up mammogram recommended. (A) ASSESSMENT CATEGORY: BIRADS Category 1: Negative. A letter regarding these results will be sent to the patient by the facility within 30 days. Approximately 10% of breast cancers are not detected by mammography. A normal mammogram should not delay biopsy of a clinically suspicious abnormality. [id number] Electronically Signed: Yunior Quinn, at 9:34 EDT , Service support ,
== END | disposition home or self-care (01) ==
LOC: OPBI 07:43
PROVIDERS: PCP Nurse Practitioner; Referring Provider Nurse Practitioner; Visit Provider Nurse Practitioner
DX: Z12.31 Encounter for screening mammogram for malignant neoplasm of breast (principal)
CPT/HCPCS: 77063; 77067

== ENCOUNTER → 2019-12-29 06:45 | Outpatient (CLI) | payer OTHER, SELFPAY ==
[2019-11-14 13:20] VITALS: BMI 32.1
--- NOTE | 2019-12-30 05:50 | PFTCOMP_ITS ---
COMPLETE PULMONARY FUNCTION TEST INTERPRETATION Brief HPI: Patient is a 39 year old female, currently under the care of Mare Whitten, who presents to [facility] for complete pulmonary function tests secondary to diagnosis of dyspnea. Respiratory therapist reports good effort and reproducible results. Interpretation: Forced expiration spirometry shows no large airways obstructive ventilatory defect with an FEV1 of 116% predicted. There is no significant bronchodilator r esponse by strict ATS criteria. Spirograms are of good quality and plateau normally. The respiratory flow volume loop shows a normal pattern. Lung volumes by body plethysmography show a normal total lung capacity at 5.79 L, 106% predicted. All other lung volumes are within normal limits. Diffusion capacity by carbon monoxide is normal at 86% predicted. The airway resistance is normal. No previous pulmonary function tests were available for review. Impression: These pulmonary function tests are within normal limits.
== END ==
PROVIDERS: PCP Nurse Practitioner; Referring Provider Nurse Practitioner Acute Care; Visit Provider Nurse Practitioner Acute Care
DX: R06.02 Shortness of breath (principal)
CPT/HCPCS: 94060; 94726; 94729

== ENCOUNTER → 2020-04-08 15:42 | Outpatient (CLI) | payer BC, OTHER, SELFPAY ==
[2020-03-22 14:43] VITALS: BMI 31.3
--- NOTE | 2020-04-08 15:43 | US_ITS ---
STUDY: THYROID ULTRASOUND REASON FOR EXAM: Female, 39 years old. F/U THYROID NODULE -- TO BE DONE APRIL 2020 TECHNIQUE: Ultrasound evaluation of the thyroid was performed with real-time and static martinez-scale imaging. COMPARISON: 10/29/2019 FINDINGS: RIGHT LOBE: The right lobe of the thyroid gland measures 5.4 x 2.4 x 2.1 cm. There is a homogeneous echotexture. There are no demonstrated solid, cystic or complex lesions. LEFT LOBE: The left lobe of the thyroid gland measures 5.2 x 1.9 x 1.3 cm. There is a homogeneous echotexture. Nodule 1: No change in the 6 x 4 x 4 mm cystic anechoic wider than tall smoothly marginated nodule with no echogenic foci (TR 1) in the left lobe consistent with a colloid cyst. ISTHMUS: The isthmus measures 6 cm thick. . The regional lymph nodes are normal. US/Thyroid IMPRESSION: Normal ultrasound examination of the thyroid. No change in small colloid cyst in the left lobe. Electronically Signed: Bora Joy MD at 16:22 EST Tel , Service support ,
== END ==
PROVIDERS: PCP Nurse Practitioner; Referring Provider Nurse Practitioner; Visit Provider Nurse Practitioner
DX: E04.1 Nontoxic single thyroid nodule (principal)
CPT/HCPCS: 76536

== ENCOUNTER → 2020-10-14 16:29 | Outpatient (CLI) | payer BC, OTHER, SELFPAY ==
--- NOTE | 2020-10-14 16:31 | US_ITS ---
STUDY: RENAL ULTRASOUND - COMPLETE REASON FOR EXAM: Female, 40 years old. FLANK PAIN,ACUTE-RT TECHNIQUE: Ultrasound evaluation of the kidneys was performed with real-time and static menard-scale imaging. COMPARISON: None. FINDINGS: RIGHT KIDNEY: Normal location of the right kidney, which is normal in size. The right kidney measures 10.7 cm. There is a normal cortex of the right kidney. The renal cortex measures 1.5 cm. There is no right renal mass or cyst. There are no right renal calculi. There is no right hydronephrosis. DISTAL RIGHT URETER: There is non-visualization of the distal right ureter. There is no demonstrated right ureterovesical junction calculus. There is a visualized right ureteral jet. LEFT KIDNEY: Normal location of the left kidney, which is normal in size. The left kidney measures 12 cm. There is a normal cortex of the left kidney. The renal cortex measures 2.2 cm. There is no left renal mass or cyst. There are no left renal calculi. There is no left hydronephrosis. DISTAL LEFT URETER: There is non-visualization of the distal left ureter. There is no demonstrated left ureterovesical junction calculus. There is a visualized left ureteral jet. BLADDER: The distended urinary bladder has a volume of 94 ml. There is a normal wall thickness of the distended urinary bladder. There is no demonstrated mass within the urinary bladder. There are no demonstrated bladder calculi. Echogenic liver hemangioma in the right lobe of the liver measuring 15 x 15 x 12 mm US/Kidney and Bladder IMPRESSION: Normal ultrasound of the kidneys and urinary bladder. Liver hemangioma. Electronically Signed: Dann Faith DO at 1:02 EDT Tel , Service support ,
== END ==
PROVIDERS: PCP Nurse Practitioner; Referring Provider Nurse Practitioner; Visit Provider Nurse Practitioner
DX: R10.9 Unspecified abdominal pain (principal)
CPT/HCPCS: 76770

== ENCOUNTER → 2020-12-07 15:50 | Outpatient (CLI) | payer BC, OTHER, SELFPAY ==
--- NOTE | 2020-12-07 15:53 | BI_ITS ---
MAMMOGRAPHY - BILATERAL SCREENING REASON FOR EXAM: Female, 40 years old. Routine annual screening examination. PERTINENT HISTORY: Grandmother with breast cancer. Aunt with breast cancer. TECHNIQUE: Digital bilateral breast davis (3D mammographic acquisition) in the CC and MLO projections. 2-D mediolateral oblique (MLO) and craniocaudad (CC) views of both breasts were obtained. CAD: Full Field Digital Mammography with Computer Added Detection was performed. COMPARISON: Comparison is made with prior examination 12/04/2019 and 11/22/2018. FINDINGS: Breast Composition: The breasts are heterogeneously dense, which may obscure small masses. There are no dominant masses or suspicious calcifications. Stable benign-appearing bilateral axillary lymph nodes. No other significant abnormalities are identified. There has been no significant change since the prior study. BI/SCRN MAMM (CAD)W/DAVIS BILAT IMPRESSION: Stable bilateral screening mammogram. Yearly follow-up mammogram recommended. (A) ASSESSMENT CATEGORY: BIRADS Category 2: Benign. A letter regarding these results will be sent to the patient by the facility within 30 days. Approximately 10% of breast cancers are not detected by mammography. A normal mammogram should not delay biopsy of a clinically suspicious abnormality. [id number] Electronically Signed: Yunior Quinn MD at 8:58 EDT , Service support ,
== END ==
PROVIDERS: PCP Nurse Practitioner; Referring Provider Nurse Practitioner; Visit Provider Nurse Practitioner
DX: Z12.31 Encounter for screening mammogram for malignant neoplasm of breast (principal)
CPT/HCPCS: 77063; 77067

== ENCOUNTER → 2020-12-24 13:06 | Outpatient (CLI) | payer BC, OTHER, SELFPAY ==
[2020-12-24 13:56] LABS: Hemoglobin A1c 5.4 % (3.8-5.6)
[2020-12-24 14:07] LABS: Cholesterol 169 mg/dL (200); Glucose 84 mg/dL (74-106); High Density Lipoprotein 38 mg/dL; Triglycerides 101 mg/dL; Very Low Density Lipoprotein 20 mg/dL (5-40)
== END ==
PROVIDERS: PCP Nurse Practitioner; Referring Provider Nurse Practitioner; Visit Provider Nurse Practitioner
DX: Z13.1 Encounter for screening for diabetes mellitus (principal); Z13.220 Encounter for screening for lipoid disorders
CPT/HCPCS: 36415; 80061; 82947; 83036

== ENCOUNTER → 2022-01-12 | Outpatient (CLI) | payer OTHER, SELFPAY ==
--- NOTE | 2022-01-12 14:39 | BI_ITS ---
MAMMOGRAPHY - BILATERAL SCREENING REASON FOR EXAM: Female, 41 years old. Routine annual screening examination. PERTINENT HISTORY: Grandmother with breast cancer. Aunt with breast cancer. TECHNIQUE: Digital bilateral breast davis (3D mammographic acquisition) in the CC and MLO projections. 2-D mediolateral oblique (MLO) and craniocaudad (CC) views of both breasts were obtained. CAD: Full Field Digital Mammography with Computer Added Detection was performed. COMPARISON: Comparison is made with prior examination dated 12/07/2020 and 12/04/2019. FINDINGS: Breast Composition: The breasts are heterogeneously dense, which may obscure small masses. There are no dominant masses or suspicious calcifications. Stable benign appearing bilateral axillary lymph nodes. No other significant abnormalities are identified. There has been no significant change since the prior study. BI/SCRN MAMM (CAD)W/DAVIS BILAT IMPRESSION: Stable bilateral screening mammogram. Yearly follow-up mammogram recommended. (A) ASSESSMENT CATEGORY: BIRADS Category 2: Benign. A letter regarding these results will be sent to the patient by the facility within 30 days. Approximately 10% of breast cancers are not detected by mammography. A normal mammogram should not delay biopsy of a clinically suspicious abnormality. [id number] Electronically Signed: Yunior Quinn MD at 15:30 EST ,
== END | disposition home or self-care (01) ==
LOC: OPBI 14:37
PROVIDERS: PCP Internal Medicine; Visit Provider Internal Medicine
DX: Z12.31 Encounter for screening mammogram for malignant neoplasm of breast (principal); Z80.3 Family history of malignant neoplasm of breast
CPT/HCPCS: 77063; 77067

== ENCOUNTER → 2022-05-22 | Outpatient (CLI) | payer OTHER, SELFPAY ==
[2022-05-22 10:35] LABS: Absolute Lymphocyte Count 2.04 X10^3/uL (0.83-4.51); Absolute Neutrophil Count 2.8 X10^3/uL (2.0-7.7); Basophil# 0.02 X10^3/uL; Basophil% 0.4 % (0-1); Eosinophil# 0.15 X10^3/uL; Eosinophils% 2.7 % (0-5); Hematocrit 44.5 % (37-47); Hemoglobin 14.6 g/dL (12.0-15.0); Lymphocyte # 2.04 X10^3/ul (0.83-4.51); Lymphocyte % 36.8 % (19-41); Mean Corp Hgb Conc 32.8 g/dL (32-36); Mean Corpuscular Volume 91.6 fL (81-99); Mean Platelet Vol. 9.5 fl (6.2-12.0); Monocyte# 0.54 X10^3/uL; Monocyte% 9.7 % (0-10); NRBC Flagged by Analyzer 0 % (0-5); Neutrophil # 2.78 X10^3/uL (2.7-7.7); Neutrophil % 50.2 % (47-70); Platelet Count 282 K/mm3 (150-450); RBC Distribution Width CV 12.6 % (11.6-14.6); RBC Distribution Width SD 42.5 fl (35.1-43.9); Red Blood Count 4.86 M/mm3 (4.2-5.4); White Blood Count 5.5 K/mm3 (4.4-11.0)
[2022-05-22 10:46] LABS: D-Dimer Quantitative (DVT/PE) < 0.27 FEU/ug/m (0.27-0.49)
[2022-05-22 10:49] LABS: AST(SGOT) 17 U/L (15-37); Alanine Aminotransfer ALT/SGPT 36 U/L (13-56); Alkaline Phosphatase 67 U/L (45-117); Anion Gap 7 (5-15); BUN 10 mg/dL (7-18); BUN/Creat Ratio 10.9 RATIO (10-20); Calcium,Total 9.2 mg/dL (8.5-10.1); Chloride 105 mmol/L (98-107); Creatinine, Serum 0.92 mg/dL (0.55-1.02); EST Glomerular Filtration Rate 70 mL/min (>60); Est Glom Filt Rate - Afr Amer 85 mL/min (>60); Glucose 93 mg/dL (74-106); Potassium 3.7 mmol/L (3.5-5.1); Sodium Level 138 mmol/L (136-145); Troponin-I HS 4 pg/mL (3.0-54.0)
[2022-05-22 13:51] LABS: Thyroid Stim Hormone (TSH) 1.81 uIU/mL (0.358-3.74)
--- NOTE | 2022-05-22 17:06 | RAD_ITS ---
INDICATION: Pain. Hx of herniated discs in neck and lower back, pain now around T7-8. EXAMINATION/TECHNIQUE: X-RAY - XR Spine Thoracic 2 Views COMPARISON: Chest radiograph same day. FINDINGS: 2 views of the thoracic spine. BONES: Normal anatomic alignment without evidence of fracture or subluxation. No concerning bony lesion or abnormal sclerosis to suggest lesion. DISCS/JOINTS: No significant degenerative change. SOFT TISSUES: Unremarkable. RAD/Thoracic Spine 2 Views IMPRESSION: Unremarkable thoracic spine. If there is persistent clinical concern for spine fracture and this is a trauma patient, recommend dedicated thoracic spine CT. Electronically Signed: Edu Shipman MD at 21:09 EDT ,
--- NOTE | 2022-05-22 17:06 | RAD_ITS ---
INDICATION: PAIN EXAMINATION/TECHNIQUE: X-RAY - XR Chest 2 Views COMPARISON: 03/06/2019 FINDINGS: LINES/DEVICES: None. LUNGS: No consolidation, edema or effusion. No pneumothorax. MEDIASTINUM AND CARDIOVASCULAR STRUCTURES: Cardiac silhouette not enlarged. Central airways and mediastinal contour are unremarkable. BONES AND SOFT TISSUES: Unremarkable. RAD/Chest PA and Lateral IMPRESSION: No radiographic evidence of acute cardiopulmonary disease. Electronically Signed: Vimal Clifford MD at 17:33 EDT ,
== END | disposition home or self-care (01) ==
PROVIDERS: PCP Internal Medicine; Referring Provider Internal Medicine; Visit Provider Internal Medicine
DX: R07.9 Chest pain, unspecified (principal)
CPT/HCPCS: 71046; 72070; 72072; 80053; 84443; 84484; 85025; 85379

== ENCOUNTER 2022-06-02 12:18 | Day surgery (SDC) | payer OTHER, SELFPAY ==
--- NOTE | 2022-05-29 12:18 | PCM.HP.BLA ---
History and Physical Date of Admission: 06/02/22 HPI: The patient is a 41 year old female presenting for pre-operative visit. She is scheduled for hysteroscopy for endometrial ablation, for menorrhagia on 06/02/22. Procedure discussed along with risks, benefits and complications. Other alternatives discussed for management. Consent form signed? Yes. ? ? PAST MEDICAL HISTORY PAST MEDICAL HISTORY Diagnosis Date ? Abnormal glandular Papanicolaou smear of cervix 02/05/1998 ? Abn. Pap smear (cervix) ? Acute gastritis without mention of hemorrhage ? ? Dyskinesia of esophagus ? ? resolved ? Esophageal reflux ? ? resolved ? Fibrocystic disease of breast ? ? Genital HSV ? ? HELICOBACTER PYLORI INFECTION 11/11/2007 ? Pulmonary embolism ([facility] 02/2019 ? SVT (supraventricular tachycardia) ([facility]) 2007,2008 ? 2 EPISODES ? Vitamin D deficiency ? ? ? PAST SURGICAL HISTORY PAST SURGICAL HISTORY Procedure Laterality Date ? APPENDECTOMY ? 2002 ? COLPOSCOPY CERVIX UPPER/ADJACENT VAGINA ? 1998 ? Colposcopy and she thinks mild dysplasia without treatment ? EGD TRANSORAL BIOPSY SINGLE/MULTIPLE ? 02/24/08 ? [facility] H-pylori is negative ? TONSILLECTOMY PRIMARY/SECONDARY <AGE 12 ? ? ? Tonsillectomy ? ? ? CURRENT MEDICATIONS Current Outpatient Medications Medication Sig Dispense Refill ? ferrous sulfate 325 mg (65 mg iron) tablet Take by mouth. ? ? ? omeprazole (PRILOSEC) 20 mg capsule 1 capsule. ? ? ? acetaminophen (TYLENOL) 325 mg tablet Take 1 mg by mouth. ? ? ? XARELTO 20 mg tablet ? traZODone (DESYREL) 50 mg tablet Take by mouth. ? ? ? biotin 5,000 mcg ODT Take by mouth. ? ? ? CHOLECALCIFEROL, VITAMIN D3, (VITAMIN D3 ORAL) Take by mouth. ? ? ? No current facility-administered medications for this visit. ? ? ALLERGIES: Patient has no known allergies. ? PERSONAL HISTORY: SOCIAL HISTORY Social History ? Tobacco Use ? Smoking status: Former ? ? Packs/day: 0.50 ? ? Years: 5.00 ? ? Pack years: 2.50 ? ? Types: Cigarettes ? ? Quit date: 02/05/2005 ? ? Years since quittin.3 ? Smokeless tobacco: Never Vaping Use ? Vaping Use: Never used Substance Use Topics ? Alcohol use: Yes ? ? Comment: 2 per month,NOT WHILE ? Drug use: No ? FAMILY HISTORY: FAMILY HISTORY FAMILY HISTORY Problem Relation Age of Onset ? Arthritis Mother ? ? Hypertension Mother ? ? heart at 60 ? Heart Mother ? ? Her docs thought she may have a clotting disorder- stents 07/2009 ? Heart Father ? ? Stents, triple A repair approx 2 years ago. ? Hypertension Father ? ? Lipids Father ? ? Diabetes Father ? ? Psychiatry Brother ? ? BIPOLAR ? Diabetes Maternal Grandmother ? ? Stroke Maternal Grandmother ? ? Cancer Paternal Grandmother ? ? BRAIN TUMOR ? Breast Cancer Paternal Aunt ? ? ? REVIEW OF SYMPTOMS: GENERAL: denies fevers or chills ENDOCRINOLOGY: has not been on steroids Cardiology : denies palpitations or chest pain Respiratory: denies SOB or cough Hematology: denies history of prolonged bleeding or easy bruising or VTE Allergy: Denies history of personal or family history of allergy to anesthesia ? PHYSICAL EXAMINATION: ? VITALS: Blood pressure 112/76, height 5' 5.75 (1.67 m), weight 222 lb (100.7 kg), last menstrual period 05/09/2022. ? GENERAL: The patient is well nourished, well hydrated in no acute distress. , The patient is oriented to time, place, and person. NECK: Supple. No lynphadenopathy, normal thyroid, no thyromegaly. LUNGS: Clear to auscultation bilaterally. no wheezes, rhonchi or rales HEART: Regular rate and rhythm, Normal heart sounds, and No murmurs or gallops ? IMPRESSION: menorrhagia, possible endometrial polyp on EMB ? PLAN: The risks/benefits/alternatives and personal involved for the planned hysteroscopy D&C with endometrial ablation were reviewed with the patient. Her questions were answered to her satisfaction and she desires to proceed. Consent was signed. I reviewed with her postop instructions and expectations. ? ? I have reviewed and updated past medical and surgical history, medications and allergies Assessment & Plan Assessment/Plan (1) Endometrial polyp: (2) Iron deficiency anemia due to chronic blood loss: (3) Menorrhagia: QUALIFIERS: Menorrhagia type: premenopausal Qualified Code(s): N92.4 - Excessive bleeding in the premenopausal period
[2022-06-02] VITALS (7 sets, daily range): BP systolic 110–121; BP diastolic 66–90; PULSE 73–90; RESP 16–18; TEMP 36.7–36.8; O2SAT 93–97; BMI 35.9
--- NOTE | 2022-06-02 | EMB_PTH ---
PATIENT: KODY WITT LOC: [facility] U#:[id number] AGE/SX: 41/F ROOM: RE06/02/[address]: Dr. Esther Herman MD : 1980 BED: DIS: 06/02/2022 SPEC #: [id number] RECD: 06/02/22 14:59 STATUS: ERIC FRIAS #: [id number] RADHA: 06/02/22 00:[address]: Esther Herman DEPT: SURGICAL PATHOLOGY RECD BY: Quinten Wu ENTERED: 06/05/22 09:37 SP TYPE: ENDOM BX/C AGATHA DR: Dr. Kia Vargas, DO Tissues: Endometrium, NOS Procedures: Surgery Specimen Level IV HEADER OPERATION: Hysteroscopy, D & C Jyothi PRE-OP DIAGNOSIS: Endometrial polyp, iron deficiency anemia, menorrhagia TISSUE SUBMITTED: Endometrial curettings MICROSCOPIC DIAGNOSIS Endometrial curettings: Early secretory endometrium. See comment. SJ:cale 06/06/2022 COMMENT Clinical correlation and appropriate follow up are necessary. MICROSCOPIC DESCRIPTION Slides are reviewed. GROSS DESCRIPTION Received in fixative is one container labeled with the patient's name and designated endometrial curettings. The specimen consists of multiple fragments of hemorrhagic soft tissue that in aggregate measure 5.0 x 3.0 x 0.3 cm. The specimen is totally submitted in two cassettes. / LINCOLN:cale 06/05/2022 TC:4 CPT: 28049
[2022-06-02] MEDS: Lactated Ringers 1,000 ML 15 ML IV (13:01)
[2022-06-02] MEDS: Ketorolac 30 MG/ML Syringe IV (13:02)
[2022-06-02] MEDS: Acetaminophen 500 MG Tablet 1000 MG PO (13:04)
--- NOTE | 2022-06-02 13:57 | PCM.DC ---
Discharge Instructions Diet Discharge Diet: No restrictions Activity Return to work on:: 06/05/22 May resume sexual activity in: 2 weeks Lifting Restrictions: none Dressing / Incision Call your doctor if your incision/area has: Sudden Increased Bleeding and Foul Smelling Discharge Call your doctor if you observe: Fever of 101 or Higher and Using more than 1 pad per hour (for 2 hrs in a row) Follow Up Care Please Follow Up With: Esther Herman MD When: As needed only. Call [phone] to make an appointment or with any concerns. Send a [employer] message as needed Test Results: Test results from this visit will be discussed in further detail at your follow-up appointment, if applicable. Discharge Plan Admission Primary Reason for Your Visit: Hysteroscopy with Jyothi endometrial ablation Attending Provider: Esther Herman Primary Care Provider: Kia Vagras Discharge Orders/Prescriptions Prescriptions: No Action rivaroxaban 20 mg tablet 20 mg PO DAILY Rx Instructions: to start following loading. trazodone 50 mg Tablet 50 mg PO QHS PRN (Reason: Sleep) cholecalciferol (vitamin D3) [Vitamin D3] 125 mcg (5,000 unit) Tablet 125 mcg PO DAILY fvtnlwv-aiqq-qrmvc-oreg-capryl 100 mg-150 mg- 50 mg-150 mg Capsule 1 cap PO DAILY acetaminophen 500 mg Tablet 1,000 mg PO Q6H PRN (Reason: Pain) Referrals / Follow Up: Kia Vargas DO [Primary Care Provider] - Disposition Disposition (needs filled in before D/C Order can be placed): Home, Self Care
--- NOTE | 2022-06-02 14:00 | PCM.OPRPT ---
Problems Associated Problem List Diagnoses (1) Endometrial polyp: (2) Iron deficiency anemia due to chronic blood loss: (3) Menorrhagia: Report of Operation Date of Procedure: 06/02/22 Pre-Operative Diagnosis: endometrial polyp, menorrhagia, fe def anemia due to chronic blood loss Post-Operative Diagnosis: same Surgery/Procedure Performed:: Hysteroscopy D&C with Jyothi endometrial ablation Description of Surgical Findings:: Normal cervix and vagina, lush endometrium. No discrete polyp noted. Surgeon: Esther Herman appliance repair technician: None Type of Anesthesia: MAC/Supplemental/Local Anesthesiologist: Lexi Sanchez Special Medications: none Specimen's removed: Endometrial curetting Drains: none Estimated Blood Loss (mL): 10 Fluids Replaced: 800 Description of Procedure: The patient was taken to the OR where she was prepped and draped in dorsal lithotomy position. The weighted speculum was placed in the vagina and the anterior lip of the cervix was grasped with a single-tooth tenaculum. A paracervical block was administered with 1% lidocaine with 1-100,000 epinephrine solution. The cervix was dilated serially with Hegar dilators. The 5mm hysteroscope was placed into the uterine cavity and the above findings were noted. Bilateral tubal ostia were identified. The uterus sounded to 9.5cm and the cervical length was 4cm. The endometrial cavity length was 5.5cm. The hysteroscope was removed. A gentle sharp curettage was done of the uterine cavity. The specimen was handed off and sent to pathology. The Jyothi device was set to 5.5cm. The instrument was then seated into the endometrial cavity and the indicator was in the green. The cervical seal balloon was inflated and the uterine integrity test was passed. The ablation procedure was initiated and completed without interruption. During the ablation procedure gentle traction was held on the tenaculum and the Jyothi device was held up against the uterine fundus. When the ablation procedure was completed the Jyothi was removed. The tenaculum was removed and the tenaculum site was noted to be hemostatic. All sponge and needle counts were correct. A vaginal sweep was performed by me. The patient was awakened and taken to the recovery room in stable condition. Hysteroscopic ins: 200cc normal saline Hysteroscopic outs:50cc Findings: Endometrial cavity: Normal, no fibroids or polyps noted Cervix: Normal Vagina: Normal Grafts/Implants Used: none Procedure Start Time: 14:12 Procedure Stop Time: 14:23 Complications none Admit VTE Documentation VTE Present on Admission: No VTE Mechan Device Prophylaxis: SCD's VTE Pharm Prophylaxis ordered?: Yes
[2022-06-02] MEDS: Lidocaine 1%/Epi 1:200 (30ml) 30 ML AMPUL (14:13)
== END 2022-06-02 15:35 | disposition home or self-care (01) ==
LOC: SDC 12:19 → AC 12:27
PROVIDERS: PCP Internal Medicine; Referring Provider Obstetrics & Gynecology; Visit Provider Obstetrics & Gynecology
PROC: 0U5B8ZZ Destruction of Endometrium, Via Natural or Artificial Opening Endoscopic (ICD-10-PCS; CPT 58558; principal; 2022-06-02 14:45)
DX: N84.0 Polyp of corpus uteri (principal); D50.0 Iron deficiency anemia secondary to blood loss (chronic); N92.4 Excessive bleeding in the premenopausal period; Z79.02 Long term (current) use of antithrombotics/antiplatelets; Z79.899 Other long term (current) drug therapy; Z87.891 Personal history of nicotine dependence
CPT/HCPCS: 58563; 00952; 88305; J7120; J2405

== ENCOUNTER 2023-01-11 08:59 | Outpatient (RCR) | payer OTHER, SELFPAY | END 2023-02-04 23:59 | LOC: NS 08:59 | PROVIDERS: PCP Family Medicine; Referring Provider Nurse Practitioner Family; Visit Provider Nurse Practitioner Family | DX: Z71.3 Dietary counseling and surveillance (principal); E66.01 Morbid (severe) obesity due to excess calories; E78.5 Hyperlipidemia, unspecified; R73.03 Prediabetes; Z68.36 Body mass index [BMI] 36.0-36.9, adult | CPT/HCPCS: 97802 ==

== ENCOUNTER → 2023-02-01 | Outpatient (CLI) | payer OTHER, SELFPAY ==
--- NOTE | 2023-02-01 14:43 | BI_ITS ---
MAMMOGRAPHY - BILATERAL SCREENING 3-D TOMOSYNTHESIS REASON FOR EXAM: Female, 42 years old. Routine annual screening mammogram. PERTINENT HISTORY: Grandmother and aunt with breast cancer. TECHNIQUE: 2-D mammograms and 3-D Tomosynthesis of the breast (s) were performed. CAD was performed. COMPARISON: January 12, 2022, December 07, 2020 FINDINGS: The breast composition is heterogeneously dense that can obscure small breast masses. Stable normal lymph nodes and scattered benign calcifications No dominant masses, suspicious microcalcifications, asymmetries, skin thickening or nipple retraction. BI/SCRN MAMM (CAD)W/DAVIS BILAT IMPRESSION: No interval change and no mammographic signs of malignancy. Routine yearly mammogram recommended. ASSESSMENT CATEGORY: BIRADS Category 2: Benign. A letter regarding these results will be sent to the patient by the facility within 30 days. FOLLOW UP RECOMMENDATION: Yearly follow up mammogram recommended. (A) Approximately 10% of breast cancers are not detected by mammography. A normal mammogram should not delay biopsy of a clinically suspicious abnormality. Electronically Signed: Kristopher Wallace MD at 15:50 EST ,
== END | disposition home or self-care (01) ==
LOC: OPBI 14:41
PROVIDERS: PCP Family Medicine; Referring Provider Family Medicine; Visit Provider Family Medicine
DX: Z12.31 Encounter for screening mammogram for malignant neoplasm of breast (principal)
CPT/HCPCS: 77063; 77067

== ENCOUNTER 2023-02-08 11:27 | Outpatient (RCR) | payer OTHER, SELFPAY | END 2023-03-07 23:59 | LOC: NS 11:27 | PROVIDERS: PCP Family Medicine; Referring Provider Nurse Practitioner Family; Visit Provider Nurse Practitioner Family | DX: Z71.3 Dietary counseling and surveillance (principal); E78.5 Hyperlipidemia, unspecified; R73.03 Prediabetes; E66.01 Morbid (severe) obesity due to excess calories; Z68.36 Body mass index [BMI] 36.0-36.9, adult | CPT/HCPCS: 97803 ==

== ENCOUNTER → 2023-09-05 | Outpatient (CLI) | payer OTHER, SELFPAY | END | disposition home or self-care (01) | LOC: LABSPEC 15:14 | PROVIDERS: PCP Family Medicine; Referring Provider Internal Medicine; Visit Provider Internal Medicine | DX: N39.0 Urinary tract infection, site not specified (principal) | CPT/HCPCS: 87086; 87088; 87186 ==

== ENCOUNTER → 2023-09-06 | Outpatient (CLI) | payer OTHER, SELFPAY | END | disposition home or self-care (01) | PROVIDERS: PCP Family Medicine; Referring Provider Internal Medicine; Visit Provider Internal Medicine | DX: R76.8 Other specified abnormal immunological findings in serum (principal) | CPT/HCPCS: 36415 ==

== ENCOUNTER → 2023-09-13 | Outpatient (CLI) | payer OTHER, SELFPAY ==
--- NOTE | 2023-09-13 10:56 | US_ITS ---
STUDY: THYROID ULTRASOUND REASON FOR EXAM: Female, 43 years old. Thyroid ultrasound. Thyroid nodule follow up TECHNIQUE: Ultrasound evaluation of the thyroid was performed with real-time and static martinez-scale imaging. COMPARISON: 04/08/2020 FINDINGS: RIGHT LOBE: The right lobe of the thyroid gland measures 5.3 x 1.7 x 2.1 cm. There is a homogeneous echotexture. There are no demonstrated solid, cystic or complex lesions. LEFT LOBE: The left lobe of the thyroid gland measures 5.2 x 1.7 x 1.4 cm. There is a homogeneous echotexture. There are no demonstrated solid, cystic or complex lesions. ISTHMUS: The isthmus measures 5 mm thick. . The regional lymph nodes are normal. US/Thyroid IMPRESSION: Normal ultrasound examination of the thyroid. Electronically Signed: Bora Joy MD at 14:32 EDT ,
--- NOTE | 2023-09-13 10:56 | US_ITS ---
STUDY: ABDOMINAL ULTRASOUND - RIGHT UPPER QUADRANT REASON FOR VISIT: Female, 43 years old Fatty liver, liver hemangioma right lobe TECHNIQUE: Ultrasound evaluation of the right upper quadrant was performed with real-time and static martinez-scale imaging. TECHNICAL QUALITY: Adequate. COMPARISON: None. FINDINGS: Liver: The liver measures 15.9 cm. There is normal echogenicity of the liver. The bile ducts are within normal limits. There is hepatic color flow. The direction of portal flow is hepatopetal. 1 cm hyperechoic lesion within the right lobe of liver likely consistent with a small hemangioma. Gallbladder: Normal distended gallbladder. The gallbladder wall measures 2 mm. There is a negative sonographic Young''s sign. There is no pericholecystic fluid. There are no gallstones. Common Bile Duct (C.B.D.): The common bile duct measures 6 mm. Pancreas: Normal size of the head, body and tail of the pancreas. There is normal echogenicity of the pancreas. There is no demonstrated pancreatic mass or cyst. Right Kidney: Normal size of the right kidney. The right kidney measures 10.0 cm. Normal renal cortex. The right cortex measures 1.1 cm. There is no demonstrated renal mass or cyst. There is no right hydronephrosis. US/Abdomen Limited IMPRESSION: Mild extrahepatic biliary ductal dilatation. MRCP or ERCP may be useful. Suspect small hemangioma in the right lobe of the liver. Electronically Signed: Bora Joy MD at 14:34 EDT ,
== END | disposition home or self-care (01) ==
PROVIDERS: PCP Family Medicine; Referring Provider Internal Medicine; Visit Provider Internal Medicine
DX: K76.0 Fatty (change of) liver, not elsewhere classified (principal); E04.1 Nontoxic single thyroid nodule
CPT/HCPCS: 76536; 76705

== ENCOUNTER → 2024-02-14 | Outpatient (CLI) | payer OTHER, SELFPAY ==
--- NOTE | 2024-02-14 14:39 | BI_ITS ---
MAMMOGRAPHY - BILATERAL SCREENING REASON FOR EXAM: Female, 43 years old. Routine annual screening examination. PERTINENT HISTORY: Grandmother with breast cancer. Aunt with breast cancer. TECHNIQUE: Digital bilateral breast davis (3D mammographic acquisition) in the CC and MLO projections. 2-D mediolateral oblique (MLO) and craniocaudad (CC) views of both breasts were obtained. CAD: Full Field Digital Mammography with Computer Added Detection was performed. COMPARISON: Comparison is made with prior study dated February 01, 2023 and January 12, 2022. FINDINGS: Breast Composition: The breasts are heterogeneously dense, which may obscure small masses. There are no dominant masses or suspicious calcifications. Stable bilateral axillary lymph nodes. No other significant abnormalities are identified. There has been no significant change since the prior study. BI/SCRN MAMM (CAD)W/DAVIS BILAT IMPRESSION: Stable bilateral screening mammogram. Yearly follow-up mammogram recommended. (A) ASSESSMENT CATEGORY: BIRADS Category 2: Benign. A letter regarding these results will be sent to the patient by the facility within 30 days. Approximately 10% of breast cancers are not detected by mammography. A normal mammogram should not delay biopsy of a clinically suspicious abnormality. [id number] Electronically Signed: Yunior Quinn MD at 15:20 EST ,
== END | disposition home or self-care (01) ==
PROVIDERS: PCP Family Medicine; Referring Provider Internal Medicine; Visit Provider Internal Medicine
DX: Z12.31 Encounter for screening mammogram for malignant neoplasm of breast (principal)
CPT/HCPCS: 77063; 77067

== ENCOUNTER 2024-07-07 12:00 | Outpatient (RCR) | payer OTHER, SELFPAY ==
--- NOTE | 2024-06-19 14:32 | HP.PTEVAL ---
Patient's Visit Information Visit Information Visit Information: KODY WITT is a 43 year old F referred to Physical Therapy by JASON BOWLING with a diagnosis of CERVICAL SPONDYLOSIS C5-6, C6-7. Date of Evaluation: 06/19/24 Physical Therapist: Tiana Witt PT, Cert MDT Visit Plan Frequency: 2-3x /Week Duration: 4-6 Weeks Plan: TENTATIVE SURGERY DATE IS 07/22/24 IN [place] 1. STM KAYLAH UT, SCAPULAR AND SHLD REGIONS (L>R) 2. SUB MAX CERVICAL ISOMETRICS AND L SHLD ISOMETRICS PROGRESSING L UE STRENGTHENING (SCAPULAR, BICEPS, TRICEPS, DRAFTER AUTOMOTIVE DESIGN LAYOUT) TOLERATED TRYING TO KEEP PAIN LEVELS LOW POSSIBLE AND AVOIDING PERIPHERALIZATION OF SX'S. 3. POSTURE CORRECTION/STRENGTHENING TOLERATED WITH GENTLE PEC STRETCHING (DOORWAY OR SUPINE ON FOAM ROLLER). INSTRUCT IN USE OF LUMBAR ROLL IN SITTING AND PROPER WORK STATION ERGONOMICS TO TRY TO REDUCE STRESS ON CERVICAL SPINE. 4. GENTLE ACTIVE NECK ROM AND SELF STRETCHING (NO THERAPIST MANUAL NECK THERAPY) PROGRESSING NECK MOBILITY PATIENT TOLERATES. 5. STAIR TRAINING. ENCOURAGED CONTINUED ICE AND HOME TENS/IF UNIT USE FOR PAIN MGMT. EDUCATED ABOUT PERIPHERALIZATION AND RECOMMENDED AVOIDING INCREASED PAIN, NUMBNESS AND TINGLING WITH EX AND ACTIVITY WHEN POSSIBLE. 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 Present symptoms: HEADACHES, NECK PAIN, L SHLD, ARM, FOREARM AND HAND. SOMETIMES WHOLE HAND GOES NUMB AND TINGLES. INTERMITTENT ARM AND FOREAM TINGLING TOO. OCCASSIONALLY SX'S ON THE R TOO - MAINLY TINGLING R TRAP. Present since: 9 WKS AGO. Getting Better, Getting Worse or Staying the Same: STAYING THE SAME Pain Scale: Worst - 8/10 Least - 3/10 Currently: 5/10 Commenced as a result of: TURNED HEAD TO BRUSH HAIR Symptoms at onset: SHARP L NECK PAIN AND TRAP CRAMPED. A LOT OF TINGLING ACROSS SHLD BLADES AND INTO L TRICEPS Worse: SITTING, DRIVING, REACHING, TYPING, LIFTING, TURNING HEAD, KAYLAH SDLY Better: ICE, SUPINE LYING, MUSCLE RELAXER, PERCOCET, HOME TENS/IR UNIT. Disturbed sleep: YES Previous history/Previous treatment: CHRONIC NECK PAIN TREATED WITH CHIROPRACTIC, STRETCHING AND MASSAGE. This episode: STERIODS, MUSCLE RELAXERS, GABAPENTIN (STOPPED DUE TO PERCOCET), PERCOCET Dizziness: YES Tinnitus: NO Nausea: INTERMITTENT Shortness of Breath: NO Difficulty Swallowing: NO Gait: STEPS SEEMS WIERD TO ME. I FEEL LIKE MY BRAIN IS NOT COMMUNICATING WITH MY FEET. PATIENT REPORTS SHE FEELS LIKE SHE IS GOING TO FALL ON STAIRS SOMETIMES BUT FEELS OK WALKING. Accidents: FELL ON HEAD APPROX 2016. Unexplained weight loss: NO Imagin05/12/24: FLEX/EXT NECK X-RAYS - IMPRESSION: No acute bony abnormality of the cervical spine. Moderate degenerative disc disease at C5-6. No evidence of instability on flexion and extension views. 04/28/24 NECK X-RAYS: FINDINGS: VERTEBRAE: Mild reversal of cervical spine lordosis. Mild endplate degenerative changes anterior spurring of C5-6. No definite fracture. Normal alignment. DISC SPACES: No acute findings. No significant narrowing. SOFT TISSUES: Unremarkable. MAY [address] EGAN'S RECENT NOTE: MRI done recently shows C5-6 disc degeneration with stenosis with cord compression without cord signal changes. At C6-7 there is a left paracentral soft disc herniation causing left hemicord and left foraminal stenosis. PMH/Recent major surgery: ON BLOOD THINNER CURRENTLY FOR H/O PULMONARY EMBOLISMS 2019. H/O MID AND LOW BACK BACK PAIN TREATED WITH CHIROPRACTIC. OTHER: July HAS NECK SURGERY TENTATIVELY SCHEDULED WITH DR. BOWLING IN [place]. Objective Objective: Sitting Posture/Standing Posture: FH. RSH'S. Other Observations: INDEP GAIT AND TRANSFERS. ABLE TO SLS KAYLAH LE'S > 10 SEC EA LEG. ABLE TO TANDEM WALK W/O LOB OR UE ASSIST. Sensory deficit: DECREASED L UE LIGHT TOUCH L TRICEPS, ULNAR BOARDER OF HAND, AND DIGITS 3 AND 4 REGIONS COMPARED TO R. ROM deficit: KAYLAH UE ROM WFL Motor deficit: R UE GROSSLY 5/5. R DRAFTER AUTOMOTIVE DESIGN LAYOUT 85 LBS. L SHLD FLEX FLEX 3+/5, ABD 3+/5, IR 3+/5, ER 4-/5, ELBOW FLEX 4/5, ELBOW EXT 4-/5, DRAFTER AUTOMOTIVE DESIGN LAYOUT 67 LBS. Reflexes: R UE 2+, L BICEPS 2+, L 0 Dural Signs: POSITIVE L UE Cervical Mvmt Loss: Flex: MIN Pro: NIL Ext: MOD Ret: CHARY - NAUSEA RSB: MOD LSB: MOD - MORE MVMT THAN TO THE R. R Rot: MIN L Rot: MIN INCREASED PAIN, STRAIN, LOCKING AND SHOOTING TYPE PAINS WITH CERVICAL ROM TESTING ALL PLANES. Postural strength: POOR - APPEARS TO BE PAIN INHIBITED WITH PATIENT FREQUENTLY CHANGING POSITION. GAIT - INDEP GAIT AND TRANSFERS WITH NO LOB NOTED. Balance/Special Test Scores Oswestry Neck Score: 26 Goals Goal 1:: DECREASE C/O NECK AND L UE SX'S BY AT LEAST 25% TO EASE WORK AND ADL'S. Goal Time Frame: 4-6 Weeks Goal 2:: INCREASE PAINFREE FUNCTIONAL CERVICAL ROM TO EASE WORK AND ADL'S. Goal Time Frame: 4-6 Weeks Goal 3:: IMPROVE POSTURAL AND L UE FUNCTIONAL STRENGTH Goal Time Frame: 4-6 Weeks Goal 4:: PATIENT WILL SCORE AT LEAST 5 POINTS BETTER ON NECK OSWESTRY QUESTIONNAIRE. Goal Time Frame: 4-6 Weeks Goal 5:: HEP Goal Time Frame: 4-6 Weeks Rehabilitation Potential Physical Therapy Diagnosis: POSTURAL, CERVICAL AND L UE WEAKNESS WITH CERVICAL STIFFNESS. Rehabilitation Potential: Questionable Anticipated Interventions Patient/Client Instruction: Educate patient on: Condition, Plan of Care and Risk Factors For the Purpose of:: To improve self management Therapeutic Exercise to Include: Strength training, Postural training, Flexibilty training, Gait and locomotor training, Neuromotor development, Active ROM and Scapular Strength/Stabilization For the Purpose of:: To decrease pain, To increase ROM, To improve muscle performance and motor function, To improve ability to perform ADL's, To increase tolerance to activity/condition/position, To improve ability of physical actions for home/community/work/leisure, To improve gait and locomotor functions, To increase flexibility/ROM and To improve self management Manual Therapy Techniques to Include: Soft tissue mobilization For the Purpose of:: To decrease pain and To improve nutrient delivery to tissue Text: Thank you for the opportunity to evaluate your patient. For Medicare and Medicare HMO plans, please review the plan of care and approve it. It will need to be FAXED BACK to us at [phone] for Medicare purposes. For Medicare only, by signing this I certify the plan of care. Please let me know if there are questions or concerns regarding this plan of care. Physician Signature: Date:
--- NOTE | 2024-07-09 15:05 | HP.PT.NRP ---
Patient Information Patient Information: KODY WITT was seen in my office for initial evaluation on 06/19/24. The following Plan of Care was established for this patient: POC Established Initial Frequency: 2-3x /Week Initial Duration: 4-6 Weeks Anticipated Interventions Patient/Client Instruction: Educate patient on: Condition, Plan of Care and Risk Factors For the Purpose of:: To improve self management Therapeutic Exercise to Include: Strength training, Postural training, Flexibilty training, Gait and locomotor training, Neuromotor development, Active ROM and Scapular Strength/Stabilization For the Purpose of:: To decrease pain, To increase ROM, To improve muscle performance and motor function, To improve ability to perform ADL's, To increase tolerance to activity/condition/position, To improve ability of physical actions for home/community/work/leisure, To improve gait and locomotor functions, To increase flexibility/ROM and To improve self management Manual Therapy Techniques to Include: Soft tissue mobilization For the Purpose of:: To decrease pain and To improve nutrient delivery to tissue Last Seen Last Seen: This patient was last seen in our office 07/07/24. Pertinent comments regarding their Physical therapy will appear below: It has been my pleasure to see this patient for a total of 5 visits. Patient called this date to notify us that her neck surgery has been approved and is pending 07/22/24. She will follow up with Physical Therapy as indicated/appropriate. At this point I will be discontinuing this patient from physical therapy. I would be happy to see this patient again in the future if found appropriate by the physician. Thank you! Tiana Witt, PT, Cert MDT Balance/Gait/Functional tests Balance/Special Test Scores Oswestry Neck Score: 26
== END 2024-07-07 19:00 | disposition home or self-care (01) ==
LOC: PT 12:00
PROVIDERS: PCP Family Medicine
DX: M47.812 Spondylosis without myelopathy or radiculopathy, cervical region (principal)
CPT/HCPCS: 97110; 97140; 97162; 97530

== ENCOUNTER 2024-10-15 12:30 | Outpatient (RCR) | payer OTHER, SELFPAY ==
--- NOTE | 2024-10-15 13:57 | HP.PTREVAL ---
Re-Evaluation Intro: JASON BOWLING, It has been my pleasure to treat KODY WITT over the last 13 visits for C5/C6 and C6/C7 anterior cervical disc arthroplasty 07-22-24. Please see the progress note below for an update on the physical therapy plan of care! Subjective Subjective: Pt getting L mid back under rib cage on the L side and hard to take a deep breath. She is waiting for her Dr to get back to her about her MRI. She is stiff in her neck today when she turns her head. Objective Objective/Function: C-spine AROM: flexion 75%, Ext 75%, SB B 75% B, Rot R 85% and L full ROM). UE strength (at the time of the eval: R shoulder flex 8.4 and L 10, R shoulder ABD 7.9 and L 5.8, R shoulder ER 10.3 and L 12.3 , R tricep 13 and L 12.8, R bicep 10.9 and L 10.7). Plan Plan Plan: HOLD chart at this time Encouraged pt to massage upper c-spine para spinals on her own in the hopes that improves her the pain she gets moving her head from one side to the other Pt having a lot of muscle guarding Balance/Gait/Functional tests Balance/Special Test Scores Oswestry Neck Score: 21 Goals Goals Goal 1:: I HEP Goal Time Frame: 8-12 Weeks Goal 2:: Increase C-spine AROM (at the time of the eval: C-spine AROM: flexion 75%, Ext 50%, SB B 10% B, Rot R 75% and L almost full ROM). Goal Time Frame: 8-12 Weeks Goal 3:: Increase UE strength (at the time of the eval: R shoulder flex 6.5 and L 5.5, R shoulder ABD 6.3 and L 5, R shoulder ER 10.6 and L 8.8, R tricep 13 and L 12.8, R bicep 10.9 and L 10.7). Goal Time Frame: 8-12 Weeks Goal 4:: Be able to sit with more upright posture Goal Time Frame: 6-8 Weeks Anticipated Interventions Anticipated Interventions Patient/Client Instruction: Educate patient on: Condition and Plan of Care For the Purpose of:: To decrease pain, To decrease swelling/inflammation, To increase ROM, To improve nutrient delivery to tissue, To improve muscle performance and motor function, To improve ability to perform ADL's, To increase tolerance to activity/condition/position, To improve ability of physical actions for home/community/work/leisure, To improve health of tissue, To decrease soft tissue restriction, To increase flexibility/ROM and To improve endurance Therapeutic Exercise to Include: Strength training, Endurance training, Postural training, Flexibilty training, Neuromotor development, Active ROM and Scapular Strength/Stabilization For the Purpose of:: To decrease pain, To increase ROM, To improve nutrient delivery to tissue, To improve muscle performance and motor function, To improve ability to perform ADL's, To increase tolerance to activity/condition/position, To improve health of tissue, To decrease soft tissue restriction and To increase flexibility/ROM Manual Therapy Techniques to Include: Soft tissue mobilization For the Purpose of:: To decrease pain, To increase ROM, To improve nutrient delivery to tissue, To improve health of tissue, To decrease soft tissue restriction and To increase flexibility/ROM Re-Evaluation Ending Re-evaluation ending: Please do not hesitate to contact me at [phone] by phone or if you have questions or concerns regarding this new plan of care! Sincerely, Leticia Jean Baptiste MPT
--- NOTE | 2024-12-10 13:22 | HP.PT.NRP ---
Patient Information Patient Information: KODY WITT was seen in my office for initial evaluation on 09/08/24. The following Plan of Care was established for this patient: POC Established Initial Frequency: 2x /Week Initial Duration: 6 Weeks Anticipated Interventions Patient/Client Instruction: Educate patient on: Condition and Plan of Care For the Purpose of:: To decrease pain, To decrease swelling/inflammation, To increase ROM, To improve nutrient delivery to tissue, To improve muscle performance and motor function, To improve ability to perform ADL's, To increase tolerance to activity/condition/position, To improve ability of physical actions for home/community/work/leisure, To improve health of tissue, To decrease soft tissue restriction, To increase flexibility/ROM and To improve endurance Therapeutic Exercise to Include: Strength training, Endurance training, Postural training, Flexibilty training, Neuromotor development, Active ROM and Scapular Strength/Stabilization For the Purpose of:: To decrease pain, To increase ROM, To improve nutrient delivery to tissue, To improve muscle performance and motor function, To improve ability to perform ADL's, To increase tolerance to activity/condition/position, To improve health of tissue, To decrease soft tissue restriction and To increase flexibility/ROM Manual Therapy Techniques to Include: Soft tissue mobilization For the Purpose of:: To decrease pain, To increase ROM, To improve nutrient delivery to tissue, To improve health of tissue, To decrease soft tissue restriction and To increase flexibility/ROM Last Seen Last Seen: This patient was last seen in our office 10/15/24. Pertinent comments regarding their Physical therapy will appear below: NIKKI PT At this point I will be discontinuing this patient from physical therapy. I would be happy to see this patient again in the future if found appropriate by the physician. Thank you! Leticia Jean Baptiste, MPT Balance/Gait/Functional tests Balance/Special Test Scores Oswestry Neck Score: 21
== END 2024-10-15 19:00 | disposition home or self-care (01) ==
LOC: PT 12:30
DX: Z98.1 Arthrodesis status (principal)
CPT/HCPCS: 97110; 97140; 97162; 97530